=== PATIENT | male | born 1960 | race Caucasian/White ===

== ENCOUNTER 2017-02-13 20:22 | Emergency (ER) | payer OTHER ==
[~2017-02-13] VITALS: Ht 177.8 cm; Wt 116.8 kg
[~2017-02-13 20:22] MED LIST: ACLI400A2 INH; ALBU18HF INH; ALBU8.5H5 INH; BUDE10.2 INH; CEFU500T PO; DOXY100T PO; FAMO20TA37 PO; FLUT16SP NAS; FLUT1DIS3 INH; HYDR-3138 PO; HYDR-3144 PO; HYDR-882 PO; IPRA4AER INH; LEVO750T26 PO; METH4TAB2 PO; NICO1PAT10 TD; PRED10TA PO; PRED20TA PO; PRED5TAB19 PO; SULF1TAB24 PO
[2017-02-13] MEDS: ALBUTEROL SULFATE 2.5 MG/3 ML NPPB SCH (22:39)
[2017-02-13] MEDS ORDERED: methylPREDNISolone SOD SUCC 125 MG/2 ML ONE (22:51)
[2017-02-13] MEDS ORDERED: methylPREDNISolone SOD SUCC 125 MG/2 ML IVP ONE (23:00)
[2017-02-13] MEDS ORDERED: SODIUM CHLORIDE 0.9% 1,000ML IVBOLUS ONE (23:00)
[2017-02-13 23:09] LABS: BLOOD UREA NITROGEN 10 mg/dL (7-18)
[2017-02-13 23:14] LABS: ASPARTATE AMINO TRANSFERASE 20 U/L (15-37); IS PT STATUS REG ER OR PRE ER? YES
[2017-02-14 00:30] VITALS: BP 157/72
== END 2017-02-14 00:34 | disposition home or self-care (01) ==
LOC: ED 02-14 00:30
DX: R07.89 Other chest pain (principal); J44.1 Chronic obstructive pulmonary disease with (acute) exacerbation
CPT/HCPCS: 36415; 71010; 80053; 83880; 84484; 85025; 93005; 94640; 96361; 96374; 99285; J2930; J7030; J7613

== ENCOUNTER 2017-03-18 15:17 | Emergency (ER) | payer OTHER ==
[~2017-03-18] VITALS: Ht 177.8 cm; Wt 114.7 kg
[2017-03-18 15:28] VITALS: BP 147/92
== END 2017-03-18 17:19 | disposition home or self-care (01) ==
LOC: ED 17:14
DX: S90.02XA Contusion of left ankle, initial encounter (principal); S90.32XA Contusion of left foot, initial encounter; G89.11 Acute pain due to trauma; F17.200 Nicotine dependence, unspecified, uncomplicated; J44.9 Chronic obstructive pulmonary disease, unspecified; I10 Essential (primary) hypertension; X58.XXXA Exposure to other specified factors, initial encounter; Y93.89 Activity, other specified; Y92.410 Unspecified street and highway as the place of occurrence of the external cause; Y99.9 Unspecified external cause status
CPT/HCPCS: 99284

== ENCOUNTER 2017-07-23 12:43 | Inpatient (IN) | payer OTHER ==
[~2017-07-23] VITALS: Ht 177.8 cm; Wt 125.5 kg
[~2017-07-23 12:43] MED LIST changes: -HYDR-3138 PO; -HYDR-3144 PO; +HYDR-3237 PO; +HYDR-3245 PO; +NICO-485 TD; -NICO1PAT10 TD
[2017-07-23] MEDS ORDERED: methylPREDNISolone SOD SUCC 125 MG/2 ML IVP ONE (13:30)
[2017-07-23] MEDS ORDERED: SODIUM CHLORIDE FLUSH 10ML SYR IVF ONE (13:30)
[2017-07-23] MEDS: ALBUTEROL/IPRATROPIUM 2.5MG/0.5MG, 3 ML NPPB SCH ×2 (13:32→14:13)
[2017-07-23] MEDS ORDERED: ALBUTEROL/IPRATROPIUM 2.5MG/0.5MG, 3 ML ONE ×2 (13:32→14:14)
[2017-07-23] MEDS ORDERED: methylPREDNISolone SOD SUCC 125 MG/2 ML ONE (13:55)
[2017-07-23] MEDS ORDERED: FLUT1AER INH (14:07)
[2017-07-23] MEDS ORDERED: LISI5TAB7 PO (14:07)
[2017-07-23] MEDS ORDERED: ALBU6.7H INH (14:07)
[2017-07-23 14:14] LABS: HEMATOCRIT 46.6 % (39.2-51.8); HEMOGLOBIN 15.9 g/dL (13.7-18.0); WHITE BLOOD COUNT 19.1 x10^3/uL (3.4-10)
[2017-07-23] MEDS ORDERED: MORPHINE SULFATE 4 MG/ML, 1ML ONE ×2 (14:21→15:16)
[2017-07-23] MEDS ORDERED: ONDANSETRON 2MG/ML, 2ML ONE (14:22)
[2017-07-23] MEDS: MORPHINE SULFATE 4 MG/ML, 1ML IVPush PRN ×2 (14:24→15:24)
[2017-07-23 14:28] LABS: BLOOD UREA NITROGEN 7 mg/dL (7-18)
[2017-07-23] MEDS ORDERED: ONDANSETRON 2MG/ML, 2ML IVPush ONE (14:30)
[2017-07-23 14:34] LABS: ASPARTATE AMINO TRANSFERASE 15 U/L (15-37)
[2017-07-23 14:35] LABS: IS PT STATUS REG ER OR PRE ER? YES
[2017-07-23] MEDS ORDERED: CEFTRIAXONE PMX 1GM/50ML 50 ML IVPB ONE (15:00)
[2017-07-23] MEDS ORDERED: AZITHROMYCIN 500 MG in SODIUM CHLORIDE 0.9% 250 ML IVPB ONE (15:00)
[2017-07-23] MEDS ORDERED: CEFTRIAXONE PMX 1GM/50ML 50 ML ONE (15:15)
[2017-07-23] MEDS ORDERED: OMNIPAQUE 350 MG/ML, 100ML BOTTLE ONE (15:58)
[2017-07-23] MEDS ORDERED: SODIUM CHLORIDE FLUSH 10ML SYR IVF PRN (17:00)
[2017-07-23] MEDS ORDERED: HYDROcodone/APAP 5/325 TABLET PO ONE (17:00)
[2017-07-23] MEDS ORDERED: HYDROcodone/APAP 5/325 TABLET ONE (17:05)
[2017-07-23] MEDS ORDERED: ALBUTEROL SULFATE 2.5 MG/3 ML NPPB SCH (18:00)
[2017-07-23] MEDS ORDERED: hydrALAzine 20 MG/ML, 1ML IVPush PRN (18:00)
[2017-07-23] MEDS ORDERED: ONDANSETRON ODT 4 MG PO PRN (18:00)
[2017-07-23] MEDS ORDERED: HYDROcodone/APAP 5/325 TABLET PO PRN (18:00)
[2017-07-23] MEDS ORDERED: DOCUSATE 100 MG CAPSULE PO PRN (18:00)
[2017-07-23] MEDS ORDERED: ONDANSETRON 2MG/ML, 2ML IVPush PRN (18:00)
[2017-07-23] MEDS ORDERED: POLYETHYLENE GLYCOL 17 GM PACKET PO PRN (18:00)
[2017-07-23] MEDS ORDERED: GUAIFENESIN/DM 200-20MG, 10ML UDC PO PRN (18:00)
[2017-07-23] MEDS: SODIUM CHLORIDE 0.9% 1,000 ML IV SCH (18:43)
[2017-07-23] MEDS: morphine SULFATE 10 MG/ML, 1ML IVPush PRN (19:15)
[2017-07-23 19:22] VITALS: BP 137/83
[2017-07-23] MEDS: ALBUTEROL SULFATE 2.5 MG/3 ML NPPB SCH (19:46)
[2017-07-23] MEDS: HYDROcodone/APAP 10/325 MG TABLET PO SCH (21:06)
[2017-07-23] MEDS: NICOTINE 7 MG/24 HR PATCH.TD24 TD SCH (21:06)
[2017-07-23 22:00] VITALS: BP 136/83
[2017-07-24] MEDS: morphine SULFATE 10 MG/ML, 1ML IVPush PRN ×2 (00:16→08:07)
[2017-07-24 01:16] VITALS: BP 148/81
[2017-07-24 05:37] LABS: HEMATOCRIT 44.1 % (39.2-51.8); HEMOGLOBIN 15.3 g/dL (13.7-18.0); WHITE BLOOD COUNT 20.8 x10^3/uL (3.4-10)
[2017-07-24 05:50] LABS: BLOOD UREA NITROGEN 12 mg/dL (7-18)
[2017-07-24] MEDS ORDERED: AZITHROMYCIN 500 MG TABLET PO ONE (06:00)
[2017-07-24] MEDS: HYDROcodone/APAP 10/325 MG TABLET PO SCH ×4 (06:01→21:00)
[2017-07-24] MEDS: ALBUTEROL SULFATE 2.5 MG/3 ML NPPB SCH ×4 (07:32→20:00)
[2017-07-24] MEDS: SODIUM CHLORIDE 0.9% 1,000 ML IV SCH ×2 (07:50→21:00)
[2017-07-24] MEDS: CEFDINIR 300 MG CAPSULE PO SCH ×2 (07:50→15:53)
[2017-07-24] MEDS: LISINOPRIL 5 MG TABLET PO SCH (07:50)
[2017-07-24 07:52] VITALS: BP 150/90
[2017-07-24] MEDS: FLUTICASONE/VILANTEROL 200-25MCG/INH INH SCH (08:07)
[2017-07-24] MEDS ORDERED: FLUTICASONE/VILANTEROL 100-25MCG/INH INH SCH (09:00)
[2017-07-24 13:13] VITALS: BP 158/81
[2017-07-24 19:02] VITALS: BP 128/73
[2017-07-24] MEDS: NICOTINE 7 MG/24 HR PATCH.TD24 TD SCH (20:59)
[2017-07-25 01:04] VITALS: BP 130/80
[2017-07-25 05:41] LABS: HEMATOCRIT 41.2 % (39.2-51.8); HEMOGLOBIN 14.6 g/dL (13.7-18.0); WHITE BLOOD COUNT 17.9 x10^3/uL (3.4-10)
[2017-07-25] MEDS: HYDROcodone/APAP 10/325 MG TABLET PO SCH ×4 (05:59→21:01)
[2017-07-25] MEDS: ALBUTEROL SULFATE 2.5 MG/3 ML NPPB SCH ×4 (06:54→20:38)
[2017-07-25 06:57] VITALS: BP 125/80
[2017-07-25] MEDS: CEFDINIR 300 MG CAPSULE PO SCH (10:01)
[2017-07-25] MEDS: FLUTICASONE/VILANTEROL 200-25MCG/INH INH SCH (10:01)
[2017-07-25] MEDS: LISINOPRIL 5 MG TABLET PO SCH (10:02)
[2017-07-25] MEDS: AZITHROMYCIN 250 MG TABLET PO SCH (10:02)
[2017-07-25] MEDS: SODIUM CHLORIDE 0.9% 1,000 ML IV SCH (10:03)
[2017-07-25] MEDS ORDERED: VANCOMYCIN PER PHARMACY MC PRN (10:30)
[2017-07-25] MEDS ORDERED: PHARMACOKINETIC CONSULTATION MC ONE (10:30)
[2017-07-25] MEDS ORDERED: PHARMACOKINETIC MONITORING MC PRN (10:30)
[2017-07-25 10:52] LABS: ASPARTATE AMINO TRANSFERASE 13 U/L (15-37); BLOOD UREA NITROGEN 12 mg/dL (7-18)
[2017-07-25] MEDS: CEFTRIAXONE PMX 2GM/50ML 50 ML IV SCH (10:55)
[2017-07-25] MEDS: methylPREDNISolone SOD SUCC 125 MG/2 ML IVPush SCH ×3 (10:55→22:09)
[2017-07-25 10:57] LABS: IS PT STATUS REG ER OR PRE ER? NO
[2017-07-25] MEDS ORDERED: VANCOMYCIN 2,000 MG in SODIUM CHLORIDE 0.9% 500 ML IV SCH (12:00)
[2017-07-25] MEDS: VANCOMYCIN 2,000 MG in SODIUM CHLORIDE 0.9% 500 ML IV SCH (13:47)
[2017-07-25] MEDS: DIPHENHYDRAMINE 50 MG/ML, 1ML IVPush SCH (15:20)
[2017-07-25 16:07] LABS: IS PT STATUS REG ER OR PRE ER? NO
[2017-07-25 19:08] VITALS: BP 138/78
[2017-07-25] MEDS: NICOTINE 7 MG/24 HR PATCH.TD24 TD SCH (21:01)
[2017-07-25 22:39] LABS: IS PT STATUS REG ER OR PRE ER? NO
[2017-07-26 00:53] VITALS: BP 143/81
[2017-07-26] MEDS: DIPHENHYDRAMINE 50 MG/ML, 1ML IVPush SCH ×2 (01:07→13:18)
[2017-07-26] MEDS: VANCOMYCIN 2,000 MG in SODIUM CHLORIDE 0.9% 500 ML IV SCH ×2 (01:07→13:18)
[2017-07-26] MEDS: SODIUM CHLORIDE 0.9% 1,000 ML IV SCH ×2 (01:07→21:00)
[2017-07-26] MEDS: morphine SULFATE 10 MG/ML, 1ML IVPush PRN ×3 (04:23→23:08)
[2017-07-26] MEDS: methylPREDNISolone SOD SUCC 125 MG/2 ML IVPush SCH ×3 (04:23→18:00)
[2017-07-26 05:33] LABS: HEMATOCRIT 44.8 % (39.2-51.8); HEMOGLOBIN 14.9 g/dL (13.7-18.0); WHITE BLOOD COUNT 19.1 x10^3/uL (3.4-10)
[2017-07-26 06:08] LABS: BLOOD UREA NITROGEN 13 mg/dL (7-18)
[2017-07-26] MEDS: HYDROcodone/APAP 10/325 MG TABLET PO SCH ×4 (06:11→21:41)
[2017-07-26 06:49] VITALS: BP 151/78
[2017-07-26] MEDS: ALBUTEROL SULFATE 2.5 MG/3 ML NPPB SCH ×4 (06:55→20:30)
[2017-07-26] MEDS: FLUTICASONE/VILANTEROL 200-25MCG/INH INH SCH (08:53)
[2017-07-26] MEDS: AZITHROMYCIN 250 MG TABLET PO SCH (08:54)
[2017-07-26] MEDS: LISINOPRIL 5 MG TABLET PO SCH (08:54)
[2017-07-26] MEDS: CEFTRIAXONE PMX 2GM/50ML 50 ML IV SCH (11:49)
[2017-07-26 12:37] VITALS: BP 169/81
[2017-07-26 20:26] VITALS: BP 156/93
[2017-07-26] MEDS: NICOTINE 7 MG/24 HR PATCH.TD24 TD SCH (23:08)
[2017-07-27 00:36] VITALS: BP 135/79
[2017-07-27] MEDS: DIPHENHYDRAMINE 50 MG/ML, 1ML IVPush SCH ×3 (01:25→19:49)
[2017-07-27] MEDS: methylPREDNISolone SOD SUCC 125 MG/2 ML IVPush SCH ×3 (01:25→19:50)
[2017-07-27] MEDS: VANCOMYCIN 2,000 MG in SODIUM CHLORIDE 0.9% 500 ML IV SCH ×2 (01:25→19:49)
[2017-07-27] MEDS: morphine SULFATE 10 MG/ML, 1ML IVPush PRN ×2 (02:01→05:34)
[2017-07-27 05:30] LABS: HEMATOCRIT 42.7 % (39.2-51.8); HEMOGLOBIN 14.5 g/dL (13.7-18.0); WHITE BLOOD COUNT 16.2 x10^3/uL (3.4-10)
[2017-07-27] MEDS: HYDROcodone/APAP 10/325 MG TABLET PO SCH ×4 (05:34→20:50)
[2017-07-27 05:40] LABS: BLOOD UREA NITROGEN 17 mg/dL (7-18)
[2017-07-27 07:06] VITALS: BP 155/92
[2017-07-27] MEDS: ALBUTEROL SULFATE 2.5 MG/3 ML NPPB SCH ×5 (07:24→22:30)
[2017-07-27] MEDS: SODIUM CHLORIDE 0.9% 1,000 ML IV SCH ×2 (10:02→22:51)
[2017-07-27] MEDS: AZITHROMYCIN 250 MG TABLET PO SCH (10:03)
[2017-07-27] MEDS: LISINOPRIL 5 MG TABLET PO SCH (10:03)
[2017-07-27] MEDS: FLUTICASONE/VILANTEROL 200-25MCG/INH INH SCH (10:03)
[2017-07-27 13:13] VITALS: BP 148/81
[2017-07-27] MEDS: CEFTRIAXONE PMX 2GM/50ML 50 ML IV SCH (13:54)
[2017-07-27 19:24] VITALS: BP 157/80
[2017-07-27] MEDS: NICOTINE 7 MG/24 HR PATCH.TD24 TD SCH (20:50)
[2017-07-28 00:32] VITALS: BP 150/94
[2017-07-28] MEDS: methylPREDNISolone SOD SUCC 125 MG/2 ML IVPush SCH (03:58)
[2017-07-28] MEDS: HYDROcodone/APAP 10/325 MG TABLET PO SCH ×4 (05:04→21:16)
[2017-07-28] MEDS: ALBUTEROL SULFATE 2.5 MG/3 ML NPPB SCH ×5 (06:50→23:30)
[2017-07-28 07:10] VITALS: BP_SYST 173; BP_SYST 192; BP_DIAS 103; BP_DIAS 84
[2017-07-28] MEDS: FLUTICASONE/VILANTEROL 200-25MCG/INH INH SCH (09:22)
[2017-07-28] MEDS: LISINOPRIL 5 MG TABLET PO SCH (09:23)
[2017-07-28 13:03] VITALS: BP 168/90
[2017-07-28] MEDS: VANCOMYCIN 2,000 MG in SODIUM CHLORIDE 0.9% 500 ML IV SCH (13:34)
[2017-07-28] MEDS: DIPHENHYDRAMINE 50 MG/ML, 1ML IVPush SCH ×2 (16:12→19:32)
[2017-07-28] MEDS: CEFTRIAXONE PMX 2GM/50ML 50 ML IV SCH (16:36)
[2017-07-28 18:51] VITALS: BP 199/103
[2017-07-28] MEDS: NICOTINE 7 MG/24 HR PATCH.TD24 TD SCH (21:16)
[2017-07-28 21:17] VITALS: BP 164/82
[2017-07-29 01:02] VITALS: BP 157/90
[2017-07-29] MEDS: ALBUTEROL SULFATE 2.5 MG/3 ML NPPB SCH ×5 (06:00→22:00)
[2017-07-29] MEDS: HYDROcodone/APAP 10/325 MG TABLET PO SCH ×4 (06:18→21:53)
[2017-07-29 07:07] VITALS: BP 158/86
[2017-07-29] MEDS: VANCOMYCIN 2,000 MG in SODIUM CHLORIDE 0.9% 500 ML IV SCH (07:42)
[2017-07-29] MEDS: DIPHENHYDRAMINE 50 MG/ML, 1ML IVPush SCH ×2 (07:42→21:00)
[2017-07-29] MEDS: FLUTICASONE/VILANTEROL 200-25MCG/INH INH SCH (07:49)
[2017-07-29] MEDS: LISINOPRIL 5 MG TABLET PO SCH (07:49)
[2017-07-29 12:14] VITALS: BP 156/91
[2017-07-29] MEDS: CEFTRIAXONE PMX 2GM/50ML 50 ML IV SCH (15:58)
[2017-07-29 19:42] VITALS: BP 162/84
[2017-07-29] MEDS: NICOTINE 7 MG/24 HR PATCH.TD24 TD SCH (21:52)
[2017-07-30] MEDS: DIPHENHYDRAMINE 50 MG/ML, 1ML IVPush SCH (02:01)
[2017-07-30] MEDS: VANCOMYCIN 2,000 MG in SODIUM CHLORIDE 0.9% 500 ML IV SCH (02:02)
[2017-07-30 02:55] VITALS: BP 161/89
[2017-07-30] MEDS: ALBUTEROL SULFATE 2.5 MG/3 ML NPPB SCH ×3 (06:00→15:45)
[2017-07-30] MEDS: HYDROcodone/APAP 10/325 MG TABLET PO SCH ×3 (06:27→16:00)
[2017-07-30 07:15] VITALS: BP 156/92
[2017-07-30] MEDS: FLUTICASONE/VILANTEROL 200-25MCG/INH INH SCH (08:51)
[2017-07-30] MEDS ORDERED: LISINOPRIL 10 MG TABLET PO SCH (09:00)
[2017-07-30 12:31] VITALS: BP 154/80
[2017-07-30] MEDS ORDERED: LISI-167 PO (15:38)
[2017-07-30] MEDS ORDERED: LINE600T7 PO (15:38)
[2017-07-30] MEDS: CEFTRIAXONE PMX 2GM/50ML 50 ML IV SCH (16:00)
== END 2017-07-30 16:55 | disposition home or self-care (01) | DRG 871 ==
LOC: ED 13:34 → EDIP 16:59 → 3NE 18:30
PROVIDERS: ADMIT Family Medicine; ATTEND Family Medicine
DX: A41.02 Sepsis due to Methicillin resistant Staphylococcus aureus (principal); J15.212 Pneumonia due to Methicillin resistant Staphylococcus aureus; J96.91 Respiratory failure, unspecified with hypoxia; I11.0 Hypertensive heart disease with heart failure; I50.9 Heart failure, unspecified; Z99.81 Dependence on supplemental oxygen; J44.0 Chronic obstructive pulmonary disease with (acute) lower respiratory infection; J44.1 Chronic obstructive pulmonary disease with (acute) exacerbation; E10.9 Type 1 diabetes mellitus without complications; F17.210 Nicotine dependence, cigarettes, uncomplicated; G89.29 Other chronic pain; M54.2 Cervicalgia; M54.5 Low back pain; I25.10 Atherosclerotic heart disease of native coronary artery without angina pectoris; Z79.4 Long term (current) use of insulin; Z79.899 Other long term (current) drug therapy; Z86.14 Personal history of Methicillin resistant Staphylococcus aureus infection; Z87.01 Personal history of pneumonia (recurrent); Z91.018 Allergy to other foods; Z72.89 Other problems related to lifestyle
CPT/HCPCS: 36415; 71010; 71020; 71275; 80048; 80053; 80202; 83605; 83880; 84484; 85025; 85379; 85610; 85730; 87040; 87070; 87077; 87186; 87205; 93005; 94640; 96365; 96367; 96375; 96376; J0456; J0696; J2405; J3370; J7613; J7620; Q9967; J1200; J2270; J2930; J7030; J7040; J7050; J7512

== ENCOUNTER 2018-01-02 10:51 | Inpatient (IN) | payer OTHER ==
[~2018-01-02] VITALS: Ht 177.8 cm; Wt 122.0 kg
[~2018-01-02 10:51] MED LIST changes: +ALBU6.7H INH; +FLUT1AER INH; +LINE600T7 PO; +LISI-167 PO; +LISI5TAB7 PO
[2018-01-02] MEDS ORDERED: NITROGLYCERIN SINGLE TAB 0.4 MG SL ONE (11:29)
[2018-01-02] MEDS ORDERED: ASPIRIN 81 MG TABLET CHEW ONE (11:30)
[2018-01-02] MEDS ORDERED: ASPIRIN 81 MG TABLET CHEW PO ONE (11:30)
[2018-01-02] MEDS ORDERED: SODIUM CHLORIDE FLUSH 10ML SYR IVF ONE (11:30)
[2018-01-02] MEDS: NITROGLYCERIN SINGLE TAB 0.4 MG SL PRN ×2 (11:31→11:42)
[2018-01-02 11:43] LABS: BASOPHILS # (AUTO) 0.04 x10^3/uL (0-0.1); BASOPHILS % (AUTO) 0 % (0-1); EOSINOPHILS # (AUTO) 0.19 x10^3/uL (0-0.4); EOSINOPHILS % (AUTO) 2 % (1-7); LYMPHOCYTES # (AUTO) 1.66 x10^3/uL (1-3.4); LYMPHOCYTES % (AUTO) 16 % (22-44); MD NO; MEAN CORPUSCULAR HEMOGLOBIN 31.9 pg (27.5-34.5); MEAN CORPUSCULAR HGB CONC 34.1 g/dL (33.2-36.2); MEAN CORPUSCULAR VOLUME 93.7 fL (81-97); MEAN PLATELET VOLUME 7.6 fL (7.4-10.4); MICROSCOPIC NOT IND; MONOCYTES # (AUTO) 0.84 x10^3/uL (0.2-0.8); MONOCYTES % (AUTO) 8 % (2-9); NEUTROPHILS # (AUTO) 7.48 x10^3/uL (1.8-6.8); NEUTROPHILS % (AUTO) 73 % (42-75); PLATELET COUNT 177 x10^3/uL (130-400); RED BLOOD COUNT 5.19 x10^6/uL (4.38-5.82)
[2018-01-02] MEDS ORDERED: APIX5TAB PO (11:46)
[2018-01-02] MEDS ORDERED: METO200T47 PO (11:46)
[2018-01-02 11:47] LABS: CULTURE INDICATED? NO; INTERNATIONAL NORMALIZED RATIO 1.02 (0.93-1.1); PROTHROMBIN TIME 10.6 Seconds (9.6-11.5)
[2018-01-02 11:51] LABS: ALBUMIN 3.7 g/dL (3.4-5.0); ANION GAP 4 mmol/L (5-15); CALCIUM 8.5 mg/dL (8.5-10.1); CHLORIDE 103 mmol/L (98-107)
[2018-01-02 11:56] LABS: TROPONIN I < 0.015 ng/mL (0.000-0.045)
[2018-01-02] MEDS ORDERED: ONDANSETRON ODT 4 MG ONE (11:58)
[2018-01-02] MEDS ORDERED: ONDANSETRON ODT 4 MG PO ONE (12:00)
[2018-01-02] MEDS ORDERED: MORPHINE SULFATE 4 MG/ML, 1ML ONE (12:00)
[2018-01-02] MEDS ORDERED: MORPHINE SULFATE 4 MG/ML, 1ML IVPush PRN ×2 (12:00→16:00)
[2018-01-02] MEDS ORDERED: SODIUM CHLORIDE FLUSH 10ML SYR IVF PRN (13:00)
[2018-01-02 15:18] VITALS: BP 125/79
[2018-01-02] MEDS ORDERED: GUAIFENESIN/DM 200-20MG, 10ML UDC PO PRN (16:00)
[2018-01-02] MEDS ORDERED: hydrALAzine 20 MG/ML, 1ML IVPush PRN (16:00)
[2018-01-02] MEDS ORDERED: ALBUTEROL SULFATE 2.5 MG/3 ML NPPB PRN (16:00)
[2018-01-02] MEDS ORDERED: NITROGLYCERIN 0.4 MG BOTTLE (25 TABS) SL PRN (16:00)
[2018-01-02] MEDS ORDERED: ONDANSETRON 2MG/ML, 2ML IVPush PRN (16:00)
[2018-01-02] MEDS ORDERED: ACETAMINOPHEN 325 MG TABLET PO PRN (16:00)
[2018-01-02] MEDS ORDERED: BISACODYL 10 MG SUPP PR PRN (16:00)
[2018-01-02] MEDS ORDERED: NITROGLYCERIN 0.4 MG/SPRAY SL PRN (16:00)
[2018-01-02] MEDS ORDERED: POLYETHYLENE GLYCOL 17 GM PACKET PO PRN (16:00)
[2018-01-02] MEDS ORDERED: ENALAPRILAT 1.25 MG/ML, 2ML IVPush PRN (16:00)
[2018-01-02] MEDS ORDERED: ONDANSETRON ODT 4 MG PO PRN (16:00)
[2018-01-02] MEDS: LACTATED RINGERS 1,000 ML IV SCH (16:10)
[2018-01-02] MEDS: HYDROcodone/APAP 10/325 MG TABLET PO SCH ×2 (16:10→21:34)
[2018-01-02] MEDS ORDERED: FLUT1BLS3 INH (16:17)
[2018-01-02] MEDS ORDERED: METO25TA35 PO (17:25)
[2018-01-02 17:48] LABS: TROPONIN I < 0.015 ng/mL (0.000-0.045)
[2018-01-02 19:52] VITALS: BP 126/78
[2018-01-02] MEDS ORDERED: METOPROLOL SUCCINATE 100 MG TAB.ER.24H PO SCH (21:00)
[2018-01-02] MEDS: APIXABAN 5 MG TABLET PO SCH (21:34)
[2018-01-02 22:26] LABS: TROPONIN I < 0.015 ng/mL (0.000-0.045)
[2018-01-03] MEDS: LACTATED RINGERS 1,000 ML IV SCH ×2 (00:32→13:07)
[2018-01-03 00:33] VITALS: BP 133/81
[2018-01-03 05:25] LABS: BASOPHILS # (AUTO) 0.04 x10^3/uL (0-0.1); BASOPHILS % (AUTO) 0 % (0-1); EOSINOPHILS # (AUTO) 0.22 x10^3/uL (0-0.4); EOSINOPHILS % (AUTO) 3 % (1-7); LYMPHOCYTES # (AUTO) 1.72 x10^3/uL (1-3.4); LYMPHOCYTES % (AUTO) 20 % (22-44); MD NO; MEAN CORPUSCULAR HEMOGLOBIN 31.7 pg (27.5-34.5); MEAN CORPUSCULAR VOLUME 93.3 fL (81-97); MEAN PLATELET VOLUME 7.6 fL (7.4-10.4); MONOCYTES # (AUTO) 0.78 x10^3/uL (0.2-0.8); MONOCYTES % (AUTO) 9 % (2-9); NEUTROPHILS # (AUTO) 5.83 x10^3/uL (1.8-6.8); NEUTROPHILS % (AUTO) 68 % (42-75); PLATELET COUNT 154 x10^3/uL (130-400); RED BLOOD COUNT 4.74 x10^6/uL (4.38-5.82); RED CELL DISTRIBUTION WIDTH 12.9 % (9.4-14.8)
[2018-01-03 05:33] LABS: CHLORIDE 104 mmol/L (98-107)
[2018-01-03 05:43] LABS: ALANINE AMINOTRANSFERASE 21 U/L (12-78); ALBUMIN 3.2 g/dL (3.4-5.0); ALKALINE PHOSPHATASE 67 U/L (45-117); ANION GAP 5 mmol/L (5-15); BILIRUBIN,TOTAL 0.5 mg/dL (0.2-1.0); CALCIUM 8.5 mg/dL (8.5-10.1); CHOL/HDL RATIO 3.3; CHOLESTEROL, TOTAL 153 mg/dL (140-239); CREATININE 0.68 mg/dL (0.7-1.3); HDL CHOL % 31 % (26-37); HDL CHOLESTEROL (DIRECT) 47 mg/dL (40-60); LDL CHOLESTEROL,CALCULATED 80 mg/dL (54-169); LDL/HDL RATIO 1.7 (0.5-3.0); TRIGLYCERIDES 132 mg/dL (50-200); VLDL CHOLESTEROL 26 mg/dL (0-25)
[2018-01-03] MEDS: HYDROcodone/APAP 10/325 MG TABLET PO SCH ×3 (06:22→16:29)
[2018-01-03 08:20] VITALS: BP 115/77
[2018-01-03] MEDS: APIXABAN 5 MG TABLET PO SCH (08:23)
[2018-01-03] MEDS ORDERED: FLUTICASONE/VILANTEROL 100-25MCG/INH INH SCH (09:00)
[2018-01-03] MEDS ORDERED: SENNA/DOCUSATE TABLET PO SCH (09:00)
[2018-01-03] MEDS ORDERED: LISINOPRIL 10 MG TABLET PO SCH (09:00)
[2018-01-03] MEDS ORDERED: METOPROLOL TARTRATE 25 MG TABLET PO SCH (09:00)
[2018-01-03] MEDS ORDERED: REGADENOSON 0.4 MG/5 ML SYRINGE ONE (11:25)
[2018-01-03 13:09] VITALS: BP 121/75
[2018-01-03] MEDS ORDERED: PRED20TA PO (14:52)
== END 2018-01-03 16:39 | disposition home or self-care (01) | DRG 311 ==
LOC: ED 12:40 → EDIP 12:41 → ED 13:02 → 5SO 15:40
PROVIDERS: ADMIT Family Medicine; ATTEND Family Medicine
DX: I24.9 Acute ischemic heart disease, unspecified (principal); I11.0 Hypertensive heart disease with heart failure; I50.9 Heart failure, unspecified; J44.1 Chronic obstructive pulmonary disease with (acute) exacerbation; I25.110 Atherosclerotic heart disease of native coronary artery with unstable angina pectoris; I48.91 Unspecified atrial fibrillation; F17.210 Nicotine dependence, cigarettes, uncomplicated; G89.29 Other chronic pain; M54.2 Cervicalgia; E10.9 Type 1 diabetes mellitus without complications; Z79.4 Long term (current) use of insulin; Z86.14 Personal history of Methicillin resistant Staphylococcus aureus infection; Z90.89 Acquired absence of other organs; Z82.49 Family history of ischemic heart disease and other diseases of the circulatory system; Z91.018 Allergy to other foods
CPT/HCPCS: 36415; 71045; 78452; 80048; 80053; 80061; 81003; 82040; 83880; 84484; 85025; 85610; 85730; 93005; 93017; 99285; J2785; Q0162; A9502; C9898; J7120; J7512

== ENCOUNTER 2018-07-23 07:16 | Observation (INO) | payer OTHER ==
[~2018-07-23] VITALS: Ht 177.8 cm; Wt 126.7 kg
[~2018-07-23 07:16] MED LIST changes: +APIX5TAB PO; +FLUT1BLS3 INH; +HYDR-3653 PO; -HYDR-882 PO; +LINE600T33 PO; -LINE600T7 PO; +METO200T47 PO; +METO25TA35 PO
[2018-07-23] MEDS ORDERED: LOSA1TAB19 PO (07:45)
[2018-07-23] MEDS ORDERED: ALBUTEROL/IPRATROPIUM 2.5MG/0.5MG, 3 ML ONE ×2 (07:48→08:54)
[2018-07-23] MEDS: ALBUTEROL/IPRATROPIUM 2.5MG/0.5MG, 3 ML NPPB SCH ×5 (07:52→22:20)
[2018-07-23 07:53] LABS: BASOPHILS # (AUTO) 0.03 x10^3/uL (0-0.1); BASOPHILS % (AUTO) 0 % (0-1); EOSINOPHILS # (AUTO) 0.19 x10^3/uL (0-0.4); EOSINOPHILS % (AUTO) 2 % (1-7); LYMPHOCYTES # (AUTO) 1.35 x10^3/uL (1-3.4); LYMPHOCYTES % (AUTO) 14 % (22-44); MD NO; MEAN CORPUSCULAR HEMOGLOBIN 31.7 pg (27.5-34.5); MEAN CORPUSCULAR HGB CONC 33.9 g/dL (33.2-36.2); MEAN CORPUSCULAR VOLUME 93.5 fL (81-97); MEAN PLATELET VOLUME 7.9 fL (7.4-10.4); MONOCYTES # (AUTO) 1.11 x10^3/uL (0.2-0.8); MONOCYTES % (AUTO) 11 % (2-9); NEUTROPHILS # (AUTO) 7.23 x10^3/uL (1.8-6.8); NEUTROPHILS % (AUTO) 73 % (42-75); PLATELET COUNT 131 x10^3/uL (130-400); RED BLOOD COUNT 4.97 x10^6/uL (4.38-5.82); RED CELL DISTRIBUTION WIDTH 13.8 % (9.4-14.8)
[2018-07-23 08:04] LABS: ALBUMIN 3.7 g/dL (3.4-5.0); ANION GAP 6 mmol/L (5-15); CALCIUM 8.6 mg/dL (8.5-10.1); CHLORIDE 103 mmol/L (98-107); CREATININE 0.88 mg/dL (0.7-1.3)
[2018-07-23] MEDS ORDERED: KETOROLAC 30 MG/1 ML ONE (08:24)
[2018-07-23] MEDS ORDERED: methylPREDNISolone SOD SUCC 125 MG/2 ML ONE (08:24)
[2018-07-23] MEDS ORDERED: methylPREDNISolone SOD SUCC 125 MG/2 ML IVP ONE (08:30)
[2018-07-23] MEDS ORDERED: SODIUM CHLORIDE FLUSH 10ML SYR IVF ONE (08:30)
[2018-07-23] MEDS ORDERED: KETOROLAC 30 MG/1 ML IVPush ONE (08:30)
[2018-07-23] MEDS ORDERED: KETOROLAC 30 MG/1 ML IM ONE (08:30)
[2018-07-23] MEDS ORDERED: HYDROcodone/APAP 5/325 TABLET PO ONE (08:30)
[2018-07-23] MEDS ORDERED: HYDROcodone/APAP 5/325 TABLET ONE (08:47)
[2018-07-23] MEDS ORDERED: ALBUTEROL 0.5%, 20ML NPPB SCH (09:00)
[2018-07-23 09:05] LABS: RAPID INFLUENZA A Negative (Negative); RAPID INFLUENZA B Negative (Negative)
[2018-07-23] MEDS ORDERED: SODIUM CHLORIDE FLUSH 10ML SYR IVF PRN (10:00)
[2018-07-23] MEDS ORDERED: ALBUTEROL/IPRATROPIUM 2.5MG/0.5MG, 3 ML NPPB PRN (10:00)
[2018-07-23 11:07] VITALS: BP 109/72
[2018-07-23] MEDS ORDERED: AZITHROMYCIN 500 MG TABLET PO ONE (12:30)
[2018-07-23] MEDS ORDERED: ALBUTEROL SULFATE INH SCH (12:30)
[2018-07-23] MEDS ORDERED: LABETALOL 5MG/ML, 20ML IVPush PRN (12:30)
[2018-07-23] MEDS ORDERED: hydrALAzine 20 MG/ML, 1ML IVPush PRN (12:30)
[2018-07-23] MEDS ORDERED: GUAIFENESIN/DM 200-20MG, 10ML UDC PO PRN (12:30)
[2018-07-23 13:07] VITALS: BP 117/65
[2018-07-23] MEDS: HYDROcodone/APAP 10/325 MG TABLET PO SCH ×2 (17:10→21:48)
[2018-07-23] MEDS: BUDESONIDE 0.5 MG/2 ML INHA NPPB SCH (19:01)
[2018-07-23 20:22] VITALS: BP 130/63
[2018-07-23] MEDS: APIXABAN 5 MG TABLET PO SCH (21:48)
[2018-07-23] MEDS: METOPROLOL TARTRATE 25 MG TABLET PO SCH (21:49)
[2018-07-24 01:21] VITALS: BP 146/78
[2018-07-24 04:54] LABS: BASOPHILS # (AUTO) 0.01 x10^3/uL (0-0.1); BASOPHILS % (AUTO) 0 % (0-1); EOSINOPHILS % (AUTO) 0 % (1-7); LYMPHOCYTES # (AUTO) 0.68 x10^3/uL (1-3.4); LYMPHOCYTES % (AUTO) 5 % (22-44); MD NO; MEAN CORPUSCULAR HEMOGLOBIN 31.9 pg (27.5-34.5); MEAN CORPUSCULAR HGB CONC 33.8 g/dL (33.2-36.2); MEAN CORPUSCULAR VOLUME 94.3 fL (81-97); MEAN PLATELET VOLUME 8.4 fL (7.4-10.4); MONOCYTES # (AUTO) 1.15 x10^3/uL (0.2-0.8); MONOCYTES % (AUTO) 9 % (2-9); NEUTROPHILS # (AUTO) 10.84 x10^3/uL (1.8-6.8); NEUTROPHILS % (AUTO) 86 % (42-75); PLATELET COUNT 127 x10^3/uL (130-400); RED BLOOD COUNT 4.85 x10^6/uL (4.38-5.82); RED CELL DISTRIBUTION WIDTH 13.5 % (9.4-14.8)
[2018-07-24 05:03] LABS: ANION GAP 7 mmol/L (5-15); CALCIUM 9.1 mg/dL (8.5-10.1); CHLORIDE 101 mmol/L (98-107)
[2018-07-24 05:04] LABS: CREATININE 0.93 mg/dL (0.7-1.3)
[2018-07-24] MEDS: HYDROcodone/APAP 10/325 MG TABLET PO SCH (05:40)
[2018-07-24] MEDS: BUDESONIDE 0.5 MG/2 ML INHA NPPB SCH ×2 (06:35→18:53)
[2018-07-24] MEDS: ALBUTEROL/IPRATROPIUM 2.5MG/0.5MG, 3 ML NPPB SCH ×5 (06:35→23:02)
[2018-07-24 07:57] VITALS: BP 142/79
[2018-07-24] MEDS: APIXABAN 5 MG TABLET PO SCH ×2 (08:23→20:00)
[2018-07-24] MEDS: AZITHROMYCIN 250 MG TABLET PO SCH (08:23)
[2018-07-24] MEDS: METOPROLOL TARTRATE 25 MG TABLET PO SCH ×2 (08:23→20:00)
[2018-07-24] MEDS ORDERED: TEMPLATE NON-FORMULARY MED. (Losartan/Hydrochlorothiazide** (Losartan-Hctz 50-12.5 Mg Tab PO SCH (09:00)
[2018-07-24] MEDS: HYDROcodone/APAP 10/325 MG TABLET PO PRN ×3 (09:33→18:41)
[2018-07-24] MEDS: LOSARTAN 50MG TABLET PO SCH (11:15)
[2018-07-24] MEDS: HYDROCHLOROTHIAZIDE 12.5 MG CAPSULE PO SCH (11:16)
[2018-07-24] MEDS: NICOTINE 7 MG/24 HR PATCH.TD24 TD SCH (13:58)
[2018-07-24 13:59] VITALS: BP 154/77
[2018-07-24 19:14] VITALS: BP 127/76
[2018-07-25 02:15] VITALS: BP 131/79
[2018-07-25] MEDS: HYDROcodone/APAP 10/325 MG TABLET PO PRN ×4 (03:34→20:45)
[2018-07-25 05:25] LABS: BASOPHILS # (AUTO) 0.04 x10^3/uL (0-0.1); BASOPHILS % (AUTO) 0 % (0-1); EOSINOPHILS # (AUTO) 0.03 x10^3/uL (0-0.4); EOSINOPHILS % (AUTO) 0 % (1-7); LYMPHOCYTES % (AUTO) 12 % (22-44); MD NO; MEAN CORPUSCULAR HEMOGLOBIN 31.5 pg (27.5-34.5); MEAN CORPUSCULAR HGB CONC 33.1 g/dL (33.2-36.2); MEAN CORPUSCULAR VOLUME 95.3 fL (81-97); MEAN PLATELET VOLUME 8.4 fL (7.4-10.4); MONOCYTES % (AUTO) 8 % (2-9); NEUTROPHILS # (AUTO) 10.75 x10^3/uL (1.8-6.8); NEUTROPHILS % (AUTO) 80 % (42-75); PLATELET COUNT 112 x10^3/uL (130-400); RED BLOOD COUNT 4.77 x10^6/uL (4.38-5.82); RED CELL DISTRIBUTION WIDTH 13.8 % (9.4-14.8)
[2018-07-25 05:43] LABS: CHLORIDE 99 mmol/L (98-107)
[2018-07-25 05:48] LABS: ANION GAP 2 mmol/L (5-15); CALCIUM 8.6 mg/dL (8.5-10.1); CREATININE 0.79 mg/dL (0.7-1.3)
[2018-07-25] MEDS: ALBUTEROL/IPRATROPIUM 2.5MG/0.5MG, 3 ML NPPB SCH ×5 (07:01→23:17)
[2018-07-25 07:43] VITALS: BP 132/82
[2018-07-25] MEDS: APIXABAN 5 MG TABLET PO SCH ×2 (08:30→20:46)
[2018-07-25] MEDS: AZITHROMYCIN 250 MG TABLET PO SCH (08:31)
[2018-07-25] MEDS: LOSARTAN 50MG TABLET PO SCH (08:31)
[2018-07-25] MEDS: HYDROCHLOROTHIAZIDE 12.5 MG CAPSULE PO SCH (08:31)
[2018-07-25] MEDS: METOPROLOL TARTRATE 25 MG TABLET PO SCH ×2 (08:31→20:46)
[2018-07-25] MEDS: BUDESONIDE 0.5 MG/2 ML INHA NPPB SCH ×2 (11:18→19:04)
[2018-07-25] MEDS: NICOTINE 7 MG/24 HR PATCH.TD24 TD SCH (14:26)
[2018-07-25 14:59] VITALS: BP 132/82
[2018-07-25 19:02] VITALS: BP 140/79
[2018-07-26 00:49] VITALS: BP 136/74
[2018-07-26] MEDS: HYDROcodone/APAP 10/325 MG TABLET PO PRN ×3 (03:30→15:40)
[2018-07-26 06:25] LABS: BASOPHILS # (AUTO) 0.04 x10^3/uL (0-0.1); BASOPHILS % (AUTO) 0 % (0-1); EOSINOPHILS % (AUTO) 1 % (1-7); LYMPHOCYTES # (AUTO) 1.99 x10^3/uL (1-3.4); LYMPHOCYTES % (AUTO) 18 % (22-44); MD NO; MEAN CORPUSCULAR HEMOGLOBIN 32.1 pg (27.5-34.5); MEAN CORPUSCULAR HGB CONC 33.9 g/dL (33.2-36.2); MEAN CORPUSCULAR VOLUME 94.8 fL (81-97); MEAN PLATELET VOLUME 7.7 fL (7.4-10.4); MONOCYTES # (AUTO) 0.99 x10^3/uL (0.2-0.8); MONOCYTES % (AUTO) 9 % (2-9); NEUTROPHILS # (AUTO) 8.09 x10^3/uL (1.8-6.8); NEUTROPHILS % (AUTO) 72 % (42-75); PLATELET COUNT 122 x10^3/uL (130-400); RED BLOOD COUNT 4.65 x10^6/uL (4.38-5.82); RED CELL DISTRIBUTION WIDTH 13.9 % (9.4-14.8)
[2018-07-26 06:34] LABS: ANION GAP 4 mmol/L (5-15); CALCIUM 8.4 mg/dL (8.5-10.1); CHLORIDE 102 mmol/L (98-107); CREATININE 0.88 mg/dL (0.7-1.3)
[2018-07-26] MEDS: BUDESONIDE 0.5 MG/2 ML INHA NPPB SCH (06:47)
[2018-07-26] MEDS: ALBUTEROL/IPRATROPIUM 2.5MG/0.5MG, 3 ML NPPB SCH ×3 (06:47→14:25)
[2018-07-26 07:33] VITALS: BP 142/88
[2018-07-26] MEDS: METOPROLOL TARTRATE 25 MG TABLET PO SCH (09:26)
[2018-07-26] MEDS: APIXABAN 5 MG TABLET PO SCH (09:26)
[2018-07-26] MEDS: LOSARTAN 50MG TABLET PO SCH (09:26)
[2018-07-26] MEDS: AZITHROMYCIN 250 MG TABLET PO SCH (09:26)
[2018-07-26] MEDS: HYDROCHLOROTHIAZIDE 12.5 MG CAPSULE PO SCH (09:27)
[2018-07-26 12:32] VITALS: BP 130/81
[2018-07-26] MEDS: NICOTINE 7 MG/24 HR PATCH.TD24 TD SCH (13:00)
[2018-07-26] MEDS ORDERED: PRED20TA PO (14:00)
[2018-07-26] MEDS ORDERED: AZIT250T89 PO (14:00)
== END 2018-07-26 16:00 | disposition home or self-care (01) ==
LOC: ED 08:58 → INTOOBSV 09:32 → EDIP 09:32 → 3NW 11:03
PROVIDERS: ADMIT Internal Medicine; ATTEND Internal Medicine
DX: J44.1 Chronic obstructive pulmonary disease with (acute) exacerbation (principal); I48.91 Unspecified atrial fibrillation; I25.10 Atherosclerotic heart disease of native coronary artery without angina pectoris; I50.9 Heart failure, unspecified; I11.0 Hypertensive heart disease with heart failure; F17.210 Nicotine dependence, cigarettes, uncomplicated; G89.29 Other chronic pain; M54.5 Low back pain; M54.2 Cervicalgia; M48.061 Spinal stenosis, lumbar region without neurogenic claudication; E10.9 Type 1 diabetes mellitus without complications; Z82.49 Family history of ischemic heart disease and other diseases of the circulatory system; Z83.3 Family history of diabetes mellitus; Z86.14 Personal history of Methicillin resistant Staphylococcus aureus infection; Z87.01 Personal history of pneumonia (recurrent); Z99.81 Dependence on supplemental oxygen
CPT/HCPCS: 36415; 71045; 80048; 82040; 83605; 85025; 87400; 93005; 94640; 96374; 99284; G0378; J2930; J7512; J7620; J7626

== ENCOUNTER 2018-08-13 16:07 | Inpatient (IN) | payer MEDICAID, OTHER ==
[~2018-08-13] VITALS: Ht 177.8 cm; Wt 134.1 kg
[~2018-08-13 16:07] MED LIST changes: +AZIT250T89 PO; +LOSA1TAB19 PO
[2018-08-13] MEDS ORDERED: ALBUTEROL/IPRATROPIUM 2.5MG/0.5MG, 3 ML NPPB ONE (16:30)
[2018-08-13] MEDS ORDERED: DILTIAZEM 5 MG/ML, 5ML ONE ×2 (16:37→17:41)
[2018-08-13] MEDS ORDERED: ALBUTEROL SULFATE 2.5MG/0.5ML ONE (16:45)
[2018-08-13] MEDS ORDERED: ALBUTEROL/IPRATROPIUM 2.5MG/0.5MG, 3 ML ONE (16:45)
[2018-08-13 16:48] LABS: BASOPHILS # (AUTO) 0.07 x10^3/uL (0-0.1); BASOPHILS % (AUTO) 1 % (0-1); EOSINOPHILS # (AUTO) 0.33 x10^3/uL (0-0.4); EOSINOPHILS % (AUTO) 2 % (1-7); LYMPHOCYTES # (AUTO) 3.46 x10^3/uL (1-3.4); LYMPHOCYTES % (AUTO) 26 % (22-44); MD NO; MEAN CORPUSCULAR HEMOGLOBIN 31.6 pg (27.5-34.5); MEAN CORPUSCULAR VOLUME 92.9 fL (81-97); MEAN PLATELET VOLUME 7.4 fL (7.4-10.4); MONOCYTES # (AUTO) 1.34 x10^3/uL (0.2-0.8); MONOCYTES % (AUTO) 10 % (2-9); NEUTROPHILS # (AUTO) 8.39 x10^3/uL (1.8-6.8); NEUTROPHILS % (AUTO) 62 % (42-75); PLATELET COUNT 244 x10^3/uL (130-400); RED BLOOD COUNT 5.14 x10^6/uL (4.38-5.82); RED CELL DISTRIBUTION WIDTH 13.8 % (9.4-14.8)
[2018-08-13 16:58] LABS: ALBUMIN 3.7 g/dL (3.4-5.0); ANION GAP 6 mmol/L (5-15); CALCIUM 8.3 mg/dL (8.5-10.1); CHLORIDE 98 mmol/L (98-107)
[2018-08-13] MEDS: SODIUM CHLORIDE 0.9% 1,000 ML IV SCH ×4 (16:58→19:45)
[2018-08-13] MEDS ORDERED: DILTIAZEM 5 MG/ML, 5ML IVPush ONE ×2 (17:00→18:00)
[2018-08-13 17:03] LABS: ALANINE AMINOTRANSFERASE 34 U/L (12-78); ALKALINE PHOSPHATASE 93 U/L (45-117); BILIRUBIN,TOTAL 0.3 mg/dL (0.2-1.0); TOTAL PROTEIN 7.2 g/dL (6.4-8.2); TROPONIN I < 0.015 ng/mL (0.000-0.045)
[2018-08-13] MEDS ORDERED: OMNIPAQUE 350 MG/ML, 100ML BOTTLE ONE (17:21)
--- NOTE | 2018-08-13 17:37 | NUR ---
LATE ENTRY FOR 1628, PT TO ROOM FROM TRIAGE VIA WC. PT ANXIOUS, TACHYPNIC. TRANSFERED TO [facility] AND [facility]ACE +AFIB W/ RVR. DR DAMON AT BEDSIDE. PIV ESTABLISHED X 2, EKG COMPLETED. RT AT BEDSIDE BIPAP INITIATED, PT MED WITH DILTIZEM NOTED. BP LOW, NS IFUSING WO ON PRESSURE BAG.
--- NOTE | 2018-08-13 17:48 | NUR ---
LATE ENTRY 1640 HR IMPROVED, 2ND EKG COMPLETED.
--- NOTE | 2018-08-13 17:48 | NUR ---
LATE ENTRY 1710, PT TO CT ON 100%NRB WITH RN X [address] DAMON PT TO HAVE CONTRAST CT PRIOR TO LAB RESULTS. PT TOLLERATED CT WELL AND RTD TO ED.
[2018-08-13] MEDS ORDERED: HYDROcodone/APAP 10/325 MG TABLET ONE (17:59)
[2018-08-13] MEDS ORDERED: HYDROcodone/APAP 10/325 MG TABLET PO ONE (18:00)
[2018-08-13] MEDS ORDERED: SODIUM CHLORIDE 0.9% 1,000ML IVBOLUS ONE (18:00)
[2018-08-13] MEDS: DILTIAZEM 125 MG in DEXTROSE 5% 100 ML IV SCH ×2 (18:04→20:07)
--- NOTE | 2018-08-13 18:30 | NUR ---
PTS AT BEDSIDE, PT ASSESSMENT, POC DISCUSSED AND QUESTIONS ANSWERED.
[2018-08-13] MEDS ORDERED: ALBUTEROL/IPRATROPIUM 2.5MG/0.5MG, 3 ML NEB ONE (18:35)
--- NOTE | 2018-08-13 18:50 | NUR ---
DR GARCIA AT BEDSIDE. SBAR RPT DISCUSSED AND QUESTIONS ANSWERED.
--- NOTE | 2018-08-13 18:53 | NUR ---
DR MCADAMS AT BEDSIDE.
[2018-08-13] MEDS ORDERED: ACETAMINOPHEN 325 MG TABLET PO PRN (19:30)
[2018-08-13] MEDS ORDERED: ALBUTEROL SULFATE 2.5 MG/3 ML NPPB PRN (20:00)
[2018-08-13] MEDS ORDERED: METOPROLOL TARTRATE 25 MG TABLET PO SCH (21:00)
[2018-08-13] MEDS: BUDESONIDE 0.5 MG/2 ML INHA INH SCH (21:00)
[2018-08-13] MEDS: methylPREDNISolone SOD SUCC 125 MG/2 ML IVPush SCH (21:05)
[2018-08-13] MEDS: CEFTRIAXONE PMX 1GM/50ML 50 ML IV SCH (21:05)
[2018-08-13] MEDS: FAMOTIDINE 20 MG/2 ML IVPush SCH (21:05)
[2018-08-13] MEDS: HYDROcodone/APAP 10/325 MG TABLET PO SCH (21:06)
[2018-08-13] MEDS: APIXABAN 5 MG TABLET PO SCH (21:06)
[2018-08-13 21:23] VITALS: BP 90/61
[2018-08-13] MEDS: ALBUTEROL/IPRATROPIUM 2.5MG/0.5MG, 3 ML NPPB SCH (23:00)
[2018-08-13] MEDS: AZITHROMYCIN 500 MG in SODIUM CHLORIDE 0.9% 250 ML IV SCH (23:04)
[2018-08-13 23:40] LABS: TROPONIN I < 0.015 ng/mL (0.000-0.045)
[2018-08-14] MEDS: ALBUTEROL/IPRATROPIUM 2.5MG/0.5MG, 3 ML NPPB SCH ×6 (02:56→21:58)
[2018-08-14 04:43] LABS: BASOPHILS % (AUTO) 0 % (0-1); EOSINOPHILS # (AUTO) 0.12 x10^3/uL (0-0.4); EOSINOPHILS % (AUTO) 1 % (1-7); LYMPHOCYTES # (AUTO) 0.44 x10^3/uL (1-3.4); LYMPHOCYTES % (AUTO) 5 % (22-44); MD NO; MEAN CORPUSCULAR HEMOGLOBIN 31.9 pg (27.5-34.5); MEAN CORPUSCULAR HGB CONC 34.1 g/dL (33.2-36.2); MEAN CORPUSCULAR VOLUME 93.5 fL (81-97); MEAN PLATELET VOLUME 7.7 fL (7.4-10.4); MONOCYTES # (AUTO) 0.04 x10^3/uL (0.2-0.8); MONOCYTES % (AUTO) 0 % (2-9); NEUTROPHILS # (AUTO) 8.81 x10^3/uL (1.8-6.8); NEUTROPHILS % (AUTO) 94 % (42-75); PLATELET COUNT 152 x10^3/uL (130-400); RED BLOOD COUNT 4.76 x10^6/uL (4.38-5.82); RED CELL DISTRIBUTION WIDTH 13.8 % (9.4-14.8)
[2018-08-14 04:54] LABS: ALANINE AMINOTRANSFERASE 31 U/L (12-78); ALBUMIN 3.5 g/dL (3.4-5.0); ANION GAP 8 mmol/L (5-15); CALCIUM 7.8 mg/dL (8.5-10.1); CHLORIDE 102 mmol/L (98-107); CREATININE 1.17 mg/dL (0.7-1.3)
[2018-08-14] MEDS: HYDROcodone/APAP 10/325 MG TABLET PO SCH ×4 (04:55→21:02)
[2018-08-14] MEDS: methylPREDNISolone SOD SUCC 125 MG/2 ML IVPush SCH ×3 (04:55→17:52)
[2018-08-14 04:58] LABS: ALKALINE PHOSPHATASE 88 U/L (45-117); BILIRUBIN,TOTAL 0.3 mg/dL (0.2-1.0); TOTAL PROTEIN 6.9 g/dL (6.4-8.2); TROPONIN I < 0.015 ng/mL (0.000-0.045)
[2018-08-14] MEDS ORDERED: DILTIAZEM 125 MG in SODIUM CHLORIDE 0.9% 100 ML IV SCH (05:30)
[2018-08-14 06:53] LABS: RAPID INFLUENZA A Negative (Negative); RAPID INFLUENZA B Negative (Negative)
[2018-08-14] MEDS: APIXABAN 5 MG TABLET PO SCH ×2 (08:05→21:02)
[2018-08-14] MEDS: FAMOTIDINE 20 MG/2 ML IVPush SCH ×2 (08:05→21:02)
[2018-08-14] MEDS ORDERED: HYDROCHLOROTHIAZIDE 12.5 MG CAPSULE PO SCH (09:00)
[2018-08-14] MEDS ORDERED: MAGNESIUM SULFATE PMX 2GM/50ML 50 ML IV ONE (09:00)
[2018-08-14] MEDS ORDERED: LOSARTAN 50MG TABLET PO SCH (09:00)
[2018-08-14] MEDS: BUDESONIDE 0.5 MG/2 ML INHA INH SCH ×2 (10:30→21:00)
[2018-08-14] MEDS: DILTIAZEM 120 MG TABLET PO SCH ×3 (13:14→21:02)
[2018-08-14] MEDS: SODIUM CHLORIDE 0.9% 1,000 ML IV SCH (14:35)
[2018-08-14] MEDS: CEFTRIAXONE PMX 1GM/50ML 50 ML IV SCH (21:03)
[2018-08-14 22:37] VITALS: BP 149/78
[2018-08-14] MEDS: AZITHROMYCIN 500 MG in SODIUM CHLORIDE 0.9% 250 ML IV SCH (22:40)
[2018-08-15] MEDS: methylPREDNISolone SOD SUCC 125 MG/2 ML IVPush SCH ×3 (00:09→12:16)
[2018-08-15 01:38] VITALS: BP 136/76
[2018-08-15] MEDS: ALBUTEROL/IPRATROPIUM 2.5MG/0.5MG, 3 ML NPPB SCH ×6 (02:48→23:00)
[2018-08-15] MEDS: HYDROcodone/APAP 10/325 MG TABLET PO SCH ×4 (05:22→21:39)
[2018-08-15 06:58] VITALS: BP 155/84
[2018-08-15] MEDS ORDERED: LIDOCAINE 4% TOPICAL SOLUTION 50 ML TP PRN (07:30)
[2018-08-15] MEDS: BUDESONIDE 0.5 MG/2 ML INHA INH SCH ×2 (07:45→20:07)
[2018-08-15] MEDS: SODIUM CHLORIDE 0.9% 1,000 ML IV SCH (09:27)
[2018-08-15] MEDS: FAMOTIDINE 20 MG/2 ML IVPush SCH (09:28)
[2018-08-15] MEDS: APIXABAN 5 MG TABLET PO SCH ×2 (09:28→21:38)
[2018-08-15] MEDS: DILTIAZEM 120 MG TABLET PO SCH ×2 (09:28→16:55)
[2018-08-15 13:19] VITALS: BP 130/73
[2018-08-15] MEDS: HYDROCHLOROTHIAZIDE 12.5 MG CAPSULE PO SCH (13:57)
[2018-08-15] MEDS: LOSARTAN 50MG TABLET PO SCH (13:58)
[2018-08-15] MEDS ORDERED: methylPREDNISolone SOD SUCC 125 MG/2 ML IVPush SCH (18:00)
[2018-08-15 18:59] VITALS: BP 125/73
[2018-08-15] MEDS ORDERED: DILTIAZEM 5 MG/ML, 5ML IVPush ONE ×2 (20:00→21:30)
[2018-08-15] MEDS ORDERED: DILTIAZEM 125 MG in SODIUM CHLORIDE 0.9% 100 ML IV PRN (21:30)
[2018-08-15] MEDS: CEFTRIAXONE PMX 1GM/50ML 50 ML IV SCH (21:38)
[2018-08-15] MEDS: FAMOTIDINE 20 MG TABLET PO SCH (21:39)
[2018-08-15] MEDS ORDERED: DILTIAZEM 125 MG in SODIUM CHLORIDE 0.9% 100 ML IV SCH (22:00)
[2018-08-16 00:47] VITALS: BP 135/79
[2018-08-16] MEDS: ALBUTEROL/IPRATROPIUM 2.5MG/0.5MG, 3 ML NPPB SCH ×5 (03:00→19:27)
[2018-08-16] MEDS: HYDROcodone/APAP 10/325 MG TABLET PO SCH ×4 (05:35→20:11)
[2018-08-16 05:46] LABS: ANION GAP 6 mmol/L (5-15); CALCIUM 8.4 mg/dL (8.5-10.1); CHLORIDE 101 mmol/L (98-107)
[2018-08-16 05:47] LABS: CREATININE 1.03 mg/dL (0.7-1.3)
[2018-08-16 07:37] VITALS: BP 129/71
[2018-08-16] MEDS ORDERED: DILTIAZEM 125 MG in SODIUM CHLORIDE 0.9% 100 ML IV SCH ×2 (08:00→22:00)
[2018-08-16 08:38] VITALS: BP 113/70
[2018-08-16] MEDS: BUDESONIDE 0.5 MG/2 ML INHA INH SCH (09:00)
[2018-08-16] MEDS: morphine SULFATE 10 MG/ML, 1ML IVPush PRN ×4 (09:21→21:36)
[2018-08-16] MEDS: APIXABAN 5 MG TABLET PO SCH ×2 (09:22→20:11)
[2018-08-16] MEDS: HYDROCHLOROTHIAZIDE 12.5 MG CAPSULE PO SCH (09:22)
[2018-08-16] MEDS: LOSARTAN 50MG TABLET PO SCH (09:23)
[2018-08-16 13:31] VITALS: BP 131/72
[2018-08-16] MEDS ORDERED: DILTIAZEM 120 MG TABLET PO SCH (16:00)
[2018-08-16] MEDS: DILTIAZEM 120 MG TABLET PO SCH ×2 (16:18→20:12)
[2018-08-16] MEDS: GUAIFENESIN 200 MG TABLET PO SCH ×2 (16:18→20:12)
[2018-08-16 18:32] VITALS: BP 130/69
[2018-08-16] MEDS: FAMOTIDINE 20 MG TABLET PO SCH (20:12)
[2018-08-16] MEDS: AZITHROMYCIN 250 MG TABLET PO SCH (20:12)
[2018-08-16] MEDS: CEFTRIAXONE PMX 1GM/50ML 50 ML IV SCH (21:36)
[2018-08-17 00:46] VITALS: BP 157/91
[2018-08-17] MEDS: morphine SULFATE 10 MG/ML, 1ML IVPush PRN ×4 (00:48→23:41)
[2018-08-17] MEDS: HYDROcodone/APAP 10/325 MG TABLET PO SCH ×4 (06:06→20:01)
[2018-08-17] MEDS: DILTIAZEM 120 MG TABLET PO SCH ×4 (06:07→20:00)
[2018-08-17] MEDS: GUAIFENESIN 200 MG TABLET PO SCH ×4 (06:07→20:00)
[2018-08-17] MEDS: ALBUTEROL/IPRATROPIUM 2.5MG/0.5MG, 3 ML NPPB SCH ×4 (06:55→19:34)
[2018-08-17] MEDS: LOSARTAN 50MG TABLET PO SCH (08:39)
[2018-08-17] MEDS: APIXABAN 5 MG TABLET PO SCH ×2 (08:39→20:01)
[2018-08-17] MEDS: AZITHROMYCIN 250 MG TABLET PO SCH (08:39)
[2018-08-17] MEDS: HYDROCHLOROTHIAZIDE 12.5 MG CAPSULE PO SCH (08:39)
[2018-08-17 08:41] LABS: TROPONIN I < 0.015 ng/mL (0.000-0.045)
[2018-08-17] MEDS ORDERED: TRELEGY ELLIPTA INH SCH (09:00)
[2018-08-17 09:49] VITALS: BP 136/80
[2018-08-17 12:14] LABS: TROPONIN I < 0.015 ng/mL (0.000-0.045)
[2018-08-17 15:59] VITALS: BP 150/97
[2018-08-17 19:58] VITALS: BP 151/83
[2018-08-17] MEDS: FAMOTIDINE 20 MG TABLET PO SCH (20:00)
[2018-08-17] MEDS: CEFTRIAXONE PMX 1GM/50ML 50 ML IV SCH (21:19)
[2018-08-18 02:31] VITALS: BP 146/80
[2018-08-18 05:06] VITALS: BP 161/89
[2018-08-18] MEDS: HYDROcodone/APAP 10/325 MG TABLET PO SCH ×2 (05:08→11:11)
[2018-08-18] MEDS: DILTIAZEM 120 MG TABLET PO SCH ×2 (05:08→11:11)
[2018-08-18] MEDS: GUAIFENESIN 200 MG TABLET PO SCH ×2 (05:09→11:11)
[2018-08-18] MEDS ORDERED: DILT120C11 PO (07:01)
[2018-08-18 07:06] VITALS: BP 147/81
[2018-08-18] MEDS: ALBUTEROL/IPRATROPIUM 2.5MG/0.5MG, 3 ML NPPB SCH ×2 (07:20→10:10)
[2018-08-18] MEDS: HYDROCHLOROTHIAZIDE 12.5 MG CAPSULE PO SCH (08:05)
[2018-08-18] MEDS: APIXABAN 5 MG TABLET PO SCH (08:05)
[2018-08-18] MEDS ORDERED: LOSARTAN 50MG TABLET PO SCH (09:00)
[2018-08-18] MEDS: morphine SULFATE 10 MG/ML, 1ML IVPush PRN (09:31)
[2018-08-18] MEDS ORDERED: PRED20TA PO (11:52)
[2018-08-18] MEDS ORDERED: LOSA1TAB25 PO (11:52)
[2018-08-18 12:00] VITALS: BP 142/90
[2018-08-18] MEDS ORDERED: AZIT250T PO (12:01)
== END 2018-08-18 15:49 | disposition home or self-care (01) | DRG 682 ==
LOC: ED 17:35 → EDIP 18:41 → ICU 19:22 → 5SO 08-14 19:01
PROVIDERS: ADMIT Hospitalist; ATTEND Hospitalist
PROC: 5A09357 Assistance with Respiratory Ventilation, Less than 24 Consecutive Hours, Continuous Positive Airway Pressure (ICD-10-PCS; principal; 2018-08-13)
DX: N17.9 Acute kidney failure, unspecified (principal); I50.33 Acute on chronic diastolic (congestive) heart failure; J11.00 Influenza due to unidentified influenza virus with unspecified type of pneumonia; J96.21 Acute and chronic respiratory failure with hypoxia; D68.69 Other thrombophilia; E87.1 Hypo-osmolality and hyponatremia; I48.1 Persistent atrial fibrillation; J44.0 Chronic obstructive pulmonary disease with (acute) lower respiratory infection; J44.1 Chronic obstructive pulmonary disease with (acute) exacerbation; J98.11 Atelectasis; Z68.41 Body mass index [BMI] 40.0-44.9, adult; Z99.11 Dependence on respirator [ventilator] status; Z66 Do not resuscitate; E10.9 Type 1 diabetes mellitus without complications; E66.01 Morbid (severe) obesity due to excess calories; E83.42 Hypomagnesemia; E86.0 Dehydration; N28.1 Cyst of kidney, acquired; F17.200 Nicotine dependence, unspecified, uncomplicated; G89.29 Other chronic pain; I11.0 Hypertensive heart disease with heart failure; I25.10 Atherosclerotic heart disease of native coronary artery without angina pectoris; I48.2 Chronic atrial fibrillation; J20.9 Acute bronchitis, unspecified; K76.0 Fatty (change of) liver, not elsewhere classified; I25.2 Old myocardial infarction; Z68.39 Body mass index [BMI] 39.0-39.9, adult; Z79.01 Long term (current) use of anticoagulants; Z79.4 Long term (current) use of insulin; Z82.49 Family history of ischemic heart disease and other diseases of the circulatory system; Z82.5 Family history of asthma and other chronic lower respiratory diseases; Z83.3 Family history of diabetes mellitus; Z86.14 Personal history of Methicillin resistant Staphylococcus aureus infection; Z99.81 Dependence on supplemental oxygen
CPT/HCPCS: 36415; 36600; 87400; 99285; J3490; J7620; J7626; 71045; 74177; 80048; 80053; 82803; 83690; 83735; 83880; 84100; 84484; 85025; 87081; 93005; 93306; 94640; 94660; 94664; 96374; 96375; G0378; J0456; J0696; Q9967; J2270; J2930; J3475; J7030; J7050; J7512

== ENCOUNTER 2018-10-06 11:00 | Inpatient (IN) | payer MEDICAID ==
[~2018-10-06] VITALS: Ht 177.8 cm; Wt 128.1 kg
[~2018-10-06 11:00] MED LIST changes: +AZIT250T PO; +DILT120C11 PO; +LOSA1TAB25 PO
[2018-10-06] MEDS ORDERED: DILT300C44 PO (11:27)
[2018-10-06] MEDS ORDERED: LOSA100T14 PO (11:27)
[2018-10-06 11:34] VITALS: BP 99/63
[2018-10-06] MEDS ORDERED: ALBUTEROL/IPRATROPIUM 2.5MG/0.5MG, 3 ML ONE (11:57)
[2018-10-06] MEDS ORDERED: PLEASE ENTER HEIGHT AND WEIGHT MC SCH (12:30)
[2018-10-06 12:39] LABS: ANION GAP 3 mmol/L (5-15); CALCIUM 8.7 mg/dL (8.5-10.1); CHLORIDE 102 mmol/L (98-107); CHOLESTEROL, TOTAL 189 mg/dL (140-239); CREATININE 1.05 mg/dL (0.7-1.3); TRIGLYCERIDES 139 mg/dL (50-200); VLDL CHOLESTEROL 28 mg/dL (0-25)
[2018-10-06 12:43] LABS: CHOL/HDL RATIO 4.7; FREE T4 (FREE THYROXINE) 1.04 ng/dL (0.76-1.46); HDL CHOL % 21 % (26-37); HDL CHOLESTEROL (DIRECT) 40 mg/dL (40-60); LDL CHOLESTEROL,CALCULATED 121 mg/dL (54-169); TROPONIN I < 0.015 ng/mL (0.000-0.045)
[2018-10-06] MEDS: ALBUTEROL/IPRATROPIUM 2.5MG/0.5MG, 3 ML NPPB SCH ×2 (14:17→20:35)
[2018-10-06] MEDS ORDERED: HYDROcodone/APAP 10/325 MG TABLET ONE (15:31)
[2018-10-06] MEDS: HYDROcodone/APAP 10/325 MG TABLET PO PRN ×2 (15:33→21:26)
[2018-10-06] MEDS ORDERED: ACETAMINOPHEN 325 MG TABLET PO PRN (17:00)
[2018-10-06] MEDS ORDERED: ONDANSETRON 2MG/ML, 2ML IVPush PRN (17:00)
[2018-10-06] MEDS ORDERED: BISACODYL 5 MG EC TABLET PO PRN (17:00)
[2018-10-06] MEDS ORDERED: ZOLPIDEM 5MG TABLET PO PRN (17:00)
[2018-10-06] MEDS ORDERED: BISACODYL 10 MG SUPP PR PRN (17:00)
[2018-10-06 17:20] LABS: TROPONIN I < 0.015 ng/mL (0.000-0.045)
[2018-10-06] MEDS: AMIODARONE 200 MG TABLET PO SCH (21:00)
[2018-10-06 21:07] VITALS: BP 106/65
[2018-10-06] MEDS: SODIUM CHLORIDE FLUSH 10ML SYR IVF SCH (21:26)
[2018-10-06] MEDS: APIXABAN 5 MG TABLET PO SCH (21:26)
[2018-10-06 21:34] VITALS: BP 91/54
[2018-10-06 23:19] LABS: TROPONIN I < 0.015 ng/mL (0.000-0.045)
[2018-10-07 03:10] VITALS: BP 131/88
[2018-10-07] MEDS: HYDROcodone/APAP 10/325 MG TABLET PO PRN ×4 (05:20→22:05)
[2018-10-07 07:32] VITALS: BP 111/76
[2018-10-07] MEDS ORDERED: ALBUTEROL/IPRATROPIUM 2.5MG/0.5MG, 3 ML NPPB PRN (08:00)
[2018-10-07] MEDS: AMIODARONE 200 MG TABLET PO SCH ×2 (08:41→22:00)
[2018-10-07] MEDS: HYDROCHLOROTHIAZIDE 25 MG TABLET PO SCH (08:41)
[2018-10-07] MEDS: APIXABAN 5 MG TABLET PO SCH ×2 (08:42→22:00)
[2018-10-07] MEDS: LOSARTAN 50MG TABLET PO SCH (08:42)
[2018-10-07] MEDS: SODIUM CHLORIDE FLUSH 10ML SYR IVF SCH ×2 (08:44→22:00)
[2018-10-07 11:00] VITALS: BP 112/72
[2018-10-07 12:50] VITALS: BP 112/75
[2018-10-07 20:00] VITALS: BP 118/75
[2018-10-08 00:56] VITALS: BP 111/82
[2018-10-08] MEDS: HYDROcodone/APAP 10/325 MG TABLET PO PRN ×5 (01:45→22:06)
[2018-10-08 08:01] VITALS: BP 111/83
[2018-10-08] MEDS: APIXABAN 5 MG TABLET PO SCH ×2 (10:05→22:06)
[2018-10-08] MEDS: AMIODARONE 200 MG TABLET PO SCH ×2 (10:05→22:06)
[2018-10-08] MEDS: LOSARTAN 50MG TABLET PO SCH (10:05)
[2018-10-08] MEDS: SODIUM CHLORIDE FLUSH 10ML SYR IVF SCH ×2 (10:05→22:07)
[2018-10-08] MEDS: HYDROCHLOROTHIAZIDE 25 MG TABLET PO SCH (10:05)
[2018-10-08] MEDS ORDERED: AMIODARONE 150 MG in DEXTROSE 5% 100 ML IV ONE (11:00)
[2018-10-08] MEDS ORDERED: FILTER 0.22 MICRON FOR AMIODARONE IV PRN (11:30)
[2018-10-08 11:50] VITALS: BP 107/71
[2018-10-08] MEDS: TRELEGY INH SCH (14:30)
[2018-10-08 14:32] VITALS: BP 111/72
[2018-10-08 20:00] VITALS: BP 111/69
[2018-10-09 01:07] VITALS: BP 104/71
[2018-10-09] MEDS: HYDROcodone/APAP 10/325 MG TABLET PO PRN ×5 (02:14→19:10)
[2018-10-09 08:32] VITALS: BP 113/80
[2018-10-09] MEDS: AMIODARONE 200 MG TABLET PO SCH (09:59)
[2018-10-09] MEDS: HYDROCHLOROTHIAZIDE 25 MG TABLET PO SCH (09:59)
[2018-10-09] MEDS: SODIUM CHLORIDE FLUSH 10ML SYR IVF SCH (09:59)
[2018-10-09] MEDS: LOSARTAN 50MG TABLET PO SCH (09:59)
[2018-10-09] MEDS: APIXABAN 5 MG TABLET PO SCH (09:59)
[2018-10-09 10:05] VITALS: BP 114/72
[2018-10-09] MEDS: TRELEGY INH SCH (10:24)
[2018-10-09] MEDS ORDERED: PROPOFOL 10 MG/ML, 20ML ONE (11:26)
[2018-10-09 12:15] VITALS: BP 110/71
[2018-10-09] MEDS ORDERED: AMIO200T42 PO (14:45)
== END 2018-10-09 19:00 | disposition home or self-care (01) | DRG 309 ==
LOC: 5SO 11:04
PROVIDERS: ADMIT Internal Medicine Cardiovascular Disease; ATTEND Internal Medicine Cardiovascular Disease
PROC: 5A2204Z Restoration of Cardiac Rhythm, Single (ICD-10-PCS; principal; 2018-10-09 13:00)
DX: I48.92 Unspecified atrial flutter (principal); D68.69 Other thrombophilia; I48.0 Paroxysmal atrial fibrillation; I10 Essential (primary) hypertension; J44.9 Chronic obstructive pulmonary disease, unspecified; Z87.891 Personal history of nicotine dependence; Z99.81 Dependence on supplemental oxygen; Z91.018 Allergy to other foods
CPT/HCPCS: 36415; 92960; J7620; 71046; 80048; 80061; 84439; 84443; 84484; 85014; 85018; 93005; 94640; G0378; J2704; J0282

== ENCOUNTER → 2018-10-14 | Outpatient (CLI) | payer MEDICAID ==
[~2018-10-14] MED LIST changes: +AMIO200T42 PO; +DILT300C44 PO; +LOSA100T14 PO
== END | disposition home or self-care (01) ==
LOC: CFH 14:04
PROVIDERS: ATTEND Nurse Practitioner Family
DX: Z12.2 Encounter for screening for malignant neoplasm of respiratory organs (principal); J43.2 Centrilobular emphysema; J84.10 Pulmonary fibrosis, unspecified; J98.11 Atelectasis; Z87.891 Personal history of nicotine dependence
CPT/HCPCS: G0297

== ENCOUNTER → 2018-10-27 | Outpatient (CLI) | payer MEDICAID | END | disposition home or self-care (01) | LOC: CVU 09:50 | PROVIDERS: ATTEND Internal Medicine Cardiovascular Disease | DX: I48.91 Unspecified atrial fibrillation (principal); I73.9 Peripheral vascular disease, unspecified; I10 Essential (primary) hypertension; Z87.891 Personal history of nicotine dependence | CPT/HCPCS: 93922 ==

== ENCOUNTER 2018-11-17 10:24 | Day surgery (SDC) | payer MEDICAID, MEDICARE, OTHER ==
[~2018-11-17] VITALS: Ht 177.8 cm; Wt 111.4 kg
[2018-11-17 11:59] VITALS: BP 150/87
[2018-11-17] MEDS ORDERED: AMIO400T5 PO (12:13)
[2018-11-17] MEDS ORDERED: METO25TA35 PO (12:13)
[2018-11-17 12:25] LABS: ANION GAP 4 mmol/L (5-15); CALCIUM 9.2 mg/dL (8.5-10.1); CHLORIDE 106 mmol/L (98-107)
[2018-11-17] MEDS ORDERED: PROPOFOL 10 MG/ML, 20ML ONE (12:51)
[2018-11-17] MEDS ORDERED: ALBUTEROL/IPRATROPIUM 2.5MG/0.5MG, 3 ML NPPB PRN (13:00)
[2018-11-17] MEDS ORDERED: ALBUTEROL/IPRATROPIUM 2.5MG/0.5MG, 3 ML ONE (13:12)
== END 2018-11-17 13:55 | disposition home or self-care (01) ==
LOC: CACL 10:24
PROVIDERS: ATTEND Internal Medicine Cardiovascular Disease
DX: I48.91 Unspecified atrial fibrillation (principal); F17.210 Nicotine dependence, cigarettes, uncomplicated; J44.9 Chronic obstructive pulmonary disease, unspecified; I10 Essential (primary) hypertension
CPT/HCPCS: 36415; 80048; 92960; 94640; J2704; J7620

== ENCOUNTER 2018-11-23 13:35 | Inpatient (IN) | payer MEDICAID ==
[~2018-11-23] VITALS: Ht 177.8 cm; Wt 129.8 kg
[~2018-11-23 13:35] MED LIST changes: +AMIO400T5 PO
--- NOTE | 2018-11-23 13:40 | NUR ---
EKG OBTAINED IN TRIAGE, REVIEWED BY EDMD.
[2018-11-23] MEDS ORDERED: DILTIAZEM 5 MG/ML, 5ML IV ONE ×2 (14:00→17:00)
[2018-11-23] MEDS ORDERED: DILTIAZEM 5 MG/ML, 10ML ONE ×2 (14:06→16:48)
--- NOTE | 2018-11-23 14:15 | NUR ---
PT PRESENTED TO ED WITH SHORTNESS OF BREATH SINCE YESTERDAY AND CHEST PAIN STARTED LAST NIGHT. PT STATED HE FELT HIS HEART RATE GOING QUITE FAST. PT A&OX4. PT PLACED ON BP, CARDIAC AND CONT. PULSE OXIMETER. ASSESSMENT [id number]. MD HAS SEEN PT AND ORDERS RECEIVED. IV STARTED IN LEFT HAND 22 GAUGE. 20MG CARDIAZEM GTT. STARTED. EKG DONE IN TRIAGE.
[2018-11-23 14:16] LABS: BASOPHILS # (AUTO) 0.05 x10^3/uL (0-0.1); BASOPHILS % (AUTO) 0 % (0-1); EOSINOPHILS # (AUTO) 0.18 x10^3/uL (0-0.4); EOSINOPHILS % (AUTO) 1 % (1-7); LYMPHOCYTES # (AUTO) 1.71 x10^3/uL (1-3.4); LYMPHOCYTES % (AUTO) 13 % (22-44); MD NO; MEAN CORPUSCULAR HEMOGLOBIN 30.9 pg (27.5-34.5); MEAN CORPUSCULAR HGB CONC 32.8 g/dL (33.2-36.2); MEAN CORPUSCULAR VOLUME 94.3 fL (81-97); MEAN PLATELET VOLUME 8.1 fL (7.4-10.4); MONOCYTES # (AUTO) 0.87 x10^3/uL (0.2-0.8); MONOCYTES % (AUTO) 6 % (2-9); NEUTROPHILS # (AUTO) 10.74 x10^3/uL (1.8-6.8); NEUTROPHILS % (AUTO) 79 % (42-75); PLATELET COUNT 168 x10^3/uL (130-400); RED BLOOD COUNT 5.86 x10^6/uL (4.38-5.82); RED CELL DISTRIBUTION WIDTH 14.5 % (9.4-14.8)
--- NOTE | 2018-11-23 14:26 | NUR ---
2ND EKG DONE AND PRESENTED TO
[2018-11-23 14:28] LABS: ALBUMIN 3.7 g/dL (3.4-5.0); ANION GAP 5 mmol/L (5-15); CALCIUM 8.5 mg/dL (8.5-10.1); CHLORIDE 102 mmol/L (98-107); CREATININE 1.05 mg/dL (0.7-1.3)
[2018-11-23] MEDS ORDERED: AMIODARONE 200 MG TABLET PO ONE (14:30)
[2018-11-23 14:32] LABS: TROPONIN I < 0.015 ng/mL (0.000-0.045)
[2018-11-23 14:33] LABS: INTERNATIONAL NORMALIZED RATIO 1.11 (0.93-1.1); PROTHROMBIN TIME 11.6 Seconds (9.6-11.5)
--- NOTE | 2018-11-23 14:34 | NUR ---
REPORT GIVEN TO OSVALDO LARA
[2018-11-23] MEDS ORDERED: AMIODARONE 200 MG TABLET ONE (14:38)
[2018-11-23] MEDS ORDERED: ONDANSETRON 2MG/ML, 2ML ONE (14:40)
[2018-11-23] MEDS ORDERED: MORPHINE SULFATE 4 MG/ML, 1ML ONE ×2 (14:41→17:32)
--- NOTE | 2018-11-23 14:46 | NUR ---
Report from Sarah LARA. Pt hr 80-90's, medicated per mar, requesting pain meds for chest and neck pain. MD notified.
[2018-11-23] MEDS ORDERED: ONDANSETRON 2MG/ML, 2ML IVPush ONE ×2 (15:00→15:30)
[2018-11-23] MEDS ORDERED: ALBUTEROL/IPRATROPIUM 2.5MG/0.5MG, 3 ML NPPB ONE (15:00)
[2018-11-23] MEDS: MORPHINE SULFATE 4 MG/ML, 1ML IVPush PRN ×2 (15:15→17:34)
--- NOTE | 2018-11-23 15:15 | NUR ---
Pt medicated for 8/10 pain per emar, denies need for zofran, states he takes norco at home and pain meds dont get him nauseas. Pt aware to notify RN if he becomes naueas.
[2018-11-23] MEDS ORDERED: ALBUTEROL/IPRATROPIUM 2.5MG/0.5MG, 3 ML ONE (15:21)
--- NOTE | 2018-11-23 15:30 | NUR ---
Pt reports decreased chest pain.
--- NOTE | 2018-11-23 15:45 | NUR ---
Chart up for recheck
--- NOTE | 2018-11-23 16:34 | NUR ---
in for recheck, pt to be admitted.
--- NOTE | 2018-11-23 16:52 | NUR ---
Pts HR up to 150's, aware, orders recieved Pt medicated per EMAR, requesting md Randy aware.
--- NOTE | 2018-11-23 17:03 | NUR ---
MARBIN SORENSON at bedside.
[2018-11-23] MEDS ORDERED: BISACODYL 10 MG SUPP PR PRN (17:30)
[2018-11-23] MEDS ORDERED: morphine SULFATE 10 MG/ML, 1ML IVPush PRN (17:30)
[2018-11-23] MEDS ORDERED: ENALAPRILAT 1.25 MG/ML, 2ML IVPush PRN (17:30)
[2018-11-23] MEDS ORDERED: ACETAMINOPHEN 325 MG TABLET PO PRN (17:30)
[2018-11-23] MEDS ORDERED: morphine SULFATE 10 MG/ML, 1ML IV PRN (17:30)
[2018-11-23] MEDS ORDERED: NITROGLYCERIN 0.4 MG BOTTLE (25 TABS) SL PRN (17:30)
[2018-11-23] MEDS ORDERED: hydrALAzine 20 MG/ML, 1ML IVPush PRN (17:30)
[2018-11-23] MEDS: SODIUM CHLORIDE FLUSH 10ML SYR IVF SCH (17:35)
--- NOTE | 2018-11-23 17:48 | NUR ---
Report to floor RN, pt ready for transport.
[2018-11-23] MEDS ORDERED: AZITHROMYCIN 500 MG TABLET PO ONE (18:00)
[2018-11-23 18:10] LABS: TROPONIN I < 0.015 ng/mL (0.000-0.045)
[2018-11-23 18:11] VITALS: BP 119/75
[2018-11-23] MEDS ORDERED: ALBUTEROL SULFATE 2.5 MG/3 ML HHN PRN (18:30)
[2018-11-23] MEDS: DILTIAZEM 125 MG in SODIUM CHLORIDE 0.9% 100 ML IV SCH (19:03)
[2018-11-23] MEDS ORDERED: ALBUTEROL/IPRATROPIUM 2.5MG/0.5MG, 3 ML NPPB PRN (20:00)
[2018-11-23] MEDS: APIXABAN 5 MG TABLET PO SCH (20:13)
[2018-11-23] MEDS: HYDROcodone/APAP 10/325 MG TABLET PO SCH (20:14)
[2018-11-23] MEDS: METOPROLOL TARTRATE 50 MG TABLET PO SCH (20:14)
[2018-11-23 20:46] LABS: TROPONIN I < 0.015 ng/mL (0.000-0.045)
[2018-11-23] MEDS: BUDESONIDE 0.5 MG/2 ML INHA NPPB SCH (21:00)
[2018-11-23] MEDS: ALBUTEROL/IPRATROPIUM 2.5MG/0.5MG, 3 ML NPPB SCH (21:00)
[2018-11-24 00:25] VITALS: BP 111/70
[2018-11-24] MEDS: ALBUTEROL/IPRATROPIUM 2.5MG/0.5MG, 3 ML NPPB SCH ×3 (03:00→15:00)
[2018-11-24] MEDS: HYDROcodone/APAP 10/325 MG TABLET PO SCH ×4 (05:01→21:04)
[2018-11-24 05:24] LABS: BASOPHILS # (AUTO) 0.01 x10^3/uL (0-0.1); BASOPHILS % (AUTO) 0 % (0-1); EOSINOPHILS # (AUTO) 0.01 x10^3/uL (0-0.4); EOSINOPHILS % (AUTO) 0 % (1-7); LYMPHOCYTES # (AUTO) 0.88 x10^3/uL (1-3.4); LYMPHOCYTES % (AUTO) 8 % (22-44); MD NO; MEAN CORPUSCULAR HEMOGLOBIN 31.5 pg (27.5-34.5); MEAN CORPUSCULAR HGB CONC 33.6 g/dL (33.2-36.2); MEAN CORPUSCULAR VOLUME 93.6 fL (81-97); MEAN PLATELET VOLUME 8.3 fL (7.4-10.4); MONOCYTES # (AUTO) 0.58 x10^3/uL (0.2-0.8); MONOCYTES % (AUTO) 5 % (2-9); NEUTROPHILS # (AUTO) 10.21 x10^3/uL (1.8-6.8); NEUTROPHILS % (AUTO) 87 % (42-75); PLATELET COUNT 129 x10^3/uL (130-400); RED BLOOD COUNT 5.36 x10^6/uL (4.38-5.82); RED CELL DISTRIBUTION WIDTH 14.1 % (9.4-14.8)
[2018-11-24 05:32] LABS: ALANINE AMINOTRANSFERASE 22 U/L (12-78); ALBUMIN 3.6 g/dL (3.4-5.0); ANION GAP 3 mmol/L (5-15); CALCIUM 8.8 mg/dL (8.5-10.1); CHLORIDE 102 mmol/L (98-107)
[2018-11-24 05:43] LABS: ALKALINE PHOSPHATASE 75 U/L (45-117); BILIRUBIN,TOTAL 0.5 mg/dL (0.2-1.0); CREATININE 0.98 mg/dL (0.7-1.3); TOTAL PROTEIN 6.5 g/dL (6.4-8.2)
[2018-11-24] MEDS ORDERED: MAGNESIUM OXIDE 400 MG TABLET PO ONE (07:00)
[2018-11-24 07:14] LABS: HEMOGLOBIN A1C 5.5 % (4.2-6.3)
[2018-11-24 07:25] VITALS: BP 128/81
[2018-11-24] MEDS: BUDESONIDE 0.5 MG/2 ML INHA NPPB SCH ×2 (07:37→20:59)
[2018-11-24] MEDS: SENNA/DOCUSATE TABLET PO SCH (08:59)
[2018-11-24] MEDS: AZITHROMYCIN 250 MG TABLET PO SCH (09:00)
[2018-11-24] MEDS: (Fluticasone/Umeclidin/Vilanter (Trelegy Ellipta 100-62.5-25) HOMEMEDPO SCH (09:00)
[2018-11-24] MEDS: METOPROLOL TARTRATE 50 MG TABLET PO SCH ×2 (09:00→21:05)
[2018-11-24] MEDS: LOSARTAN 50MG TABLET PO SCH (09:00)
[2018-11-24] MEDS: AMIODARONE 200 MG TABLET PO SCH (09:00)
[2018-11-24] MEDS: APIXABAN 5 MG TABLET PO SCH ×2 (09:00→21:04)
[2018-11-24] MEDS: DILTIAZEM 125 MG in SODIUM CHLORIDE 0.9% 100 ML IV SCH ×3 (09:37→21:06)
[2018-11-24] MEDS: SODIUM CHLORIDE FLUSH 10ML SYR IVF SCH ×2 (10:20→21:06)
[2018-11-24 12:21] VITALS: BP 107/66
[2018-11-24 19:09] VITALS: BP 101/68
[2018-11-25 01:02] VITALS: BP 96/62
[2018-11-25 05:12] LABS: BASOPHILS # (AUTO) 0.05 x10^3/uL (0-0.1); BASOPHILS % (AUTO) 1 % (0-1); EOSINOPHILS # (AUTO) 0.15 x10^3/uL (0-0.4); EOSINOPHILS % (AUTO) 1 % (1-7); LYMPHOCYTES # (AUTO) 2.67 x10^3/uL (1-3.4); LYMPHOCYTES % (AUTO) 23 % (22-44); MD NO; MEAN CORPUSCULAR HEMOGLOBIN 31.6 pg (27.5-34.5); MEAN CORPUSCULAR HGB CONC 33.5 g/dL (33.2-36.2); MEAN CORPUSCULAR VOLUME 94.4 fL (81-97); MEAN PLATELET VOLUME 8.4 fL (7.4-10.4); MONOCYTES # (AUTO) 1.06 x10^3/uL (0.2-0.8); MONOCYTES % (AUTO) 9 % (2-9); NEUTROPHILS # (AUTO) 7.53 x10^3/uL (1.8-6.8); NEUTROPHILS % (AUTO) 66 % (42-75); PLATELET COUNT 130 x10^3/uL (130-400); RED BLOOD COUNT 5.03 x10^6/uL (4.38-5.82); RED CELL DISTRIBUTION WIDTH 14.1 % (9.4-14.8)
[2018-11-25 05:22] LABS: ALBUMIN 3.6 g/dL (3.4-5.0); CALCIUM 8.5 mg/dL (8.5-10.1); CHLORIDE 103 mmol/L (98-107)
[2018-11-25 05:25] LABS: ALANINE AMINOTRANSFERASE 24 U/L (12-78); ALKALINE PHOSPHATASE 71 U/L (45-117); BILIRUBIN,TOTAL 0.4 mg/dL (0.2-1.0); CREATININE 1.15 mg/dL (0.7-1.3); TOTAL PROTEIN 6.2 g/dL (6.4-8.2)
[2018-11-25 05:30] LABS: ANION GAP 5 mmol/L (5-15)
[2018-11-25] MEDS: HYDROcodone/APAP 10/325 MG TABLET PO SCH ×2 (06:02→11:05)
[2018-11-25 07:47] VITALS: BP 119/77
[2018-11-25] MEDS: SENNA/DOCUSATE TABLET PO SCH (08:39)
[2018-11-25] MEDS: LOSARTAN 50MG TABLET PO SCH (08:39)
[2018-11-25] MEDS: AZITHROMYCIN 250 MG TABLET PO SCH (08:40)
[2018-11-25] MEDS: METOPROLOL TARTRATE 50 MG TABLET PO SCH (08:40)
[2018-11-25] MEDS: (Fluticasone/Umeclidin/Vilanter (Trelegy Ellipta 100-62.5-25) HOMEMEDPO SCH (08:40)
[2018-11-25] MEDS: SODIUM CHLORIDE FLUSH 10ML SYR IVF SCH (08:40)
[2018-11-25] MEDS: AMIODARONE 200 MG TABLET PO SCH (08:40)
[2018-11-25] MEDS: APIXABAN 5 MG TABLET PO SCH (08:40)
[2018-11-25] MEDS: BUDESONIDE 0.5 MG/2 ML INHA NPPB SCH (10:45)
[2018-11-25 12:32] VITALS: BP 116/75
[2018-11-25] MEDS ORDERED: IPRATROPIUM 0.5 MG/2.5 ML INHA HHN SCH (13:00)
[2018-11-25] MEDS ORDERED: PRED50TA PO (14:01)
[2018-11-25] MEDS ORDERED: AZIT250T PO (14:05)
== END 2018-11-25 16:28 | disposition home or self-care (01) | DRG 308 ==
LOC: ED 14:31 → EDIP 17:38 → 5SO 18:03
PROVIDERS: ADMIT Student in an Organized Health Care Education/Training Program; ATTEND Student in an Organized Health Care Education/Training Program
DX: I48.0 Paroxysmal atrial fibrillation (principal); J96.21 Acute and chronic respiratory failure with hypoxia; F17.200 Nicotine dependence, unspecified, uncomplicated; I48.92 Unspecified atrial flutter; I49.3 Ventricular premature depolarization; J43.9 Emphysema, unspecified; I10 Essential (primary) hypertension; Z82.49 Family history of ischemic heart disease and other diseases of the circulatory system; Z83.6 Family history of other diseases of the respiratory system; Z83.3 Family history of diabetes mellitus; Z86.14 Personal history of Methicillin resistant Staphylococcus aureus infection; Z98.1 Arthrodesis status; Z87.01 Personal history of pneumonia (recurrent)
CPT/HCPCS: 36415; 99291; J7620; J7626; 71045; 80048; 80053; 82040; 83036; 83735; 84100; 84443; 84484; 85025; 85610; 85730; 93005; 94640; 96374; 96375; 96376; G0378; J7512

== ENCOUNTER → 2019-03-02 | Outpatient (CLI) | payer MEDICAID ==
[~2019-03-02] MED LIST changes: -FLUT16SP NAS; +FLUT16SP24 NAS; +LOSA1TAB22 PO; +Nebulizer; +OMNIPAQUE 350 MG/ML, 150 ML BOTTLE ONE; +Oxygen; +PRED50TA PO; +TIOT18CA INH
== END | disposition home or self-care (01) ==
LOC: CFH 12:43
PROVIDERS: ATTEND Internal Medicine Cardiovascular Disease
DX: J44.9 Chronic obstructive pulmonary disease, unspecified (principal); I48.91 Unspecified atrial fibrillation
CPT/HCPCS: 71046; 75572; 82565; Q9967

== ENCOUNTER 2019-03-04 06:35 | Observation (INO) | payer MEDICAID ==
[~2019-03-04] VITALS: Ht 177.8 cm; Wt 113.6 kg
== END 2019-03-04 14:07 | disposition home or self-care (01) ==
LOC: CACL 06:35 → ORIP 09:15
PROVIDERS: ADMIT Internal Medicine Cardiovascular Disease; ATTEND Internal Medicine Cardiovascular Disease
DX: I48.92 Unspecified atrial flutter (principal); I48.91 Unspecified atrial fibrillation; J44.9 Chronic obstructive pulmonary disease, unspecified; I10 Essential (primary) hypertension; Z79.01 Long term (current) use of anticoagulants; Z79.899 Other long term (current) drug therapy; Z99.81 Dependence on supplemental oxygen
CPT/HCPCS: 36415; 80053; 85025; 85610; 85730; 93312; 93321; 93325; 93613; 93621; 93653; 94640; C1730; C1732; C1894; G0378; J0330; J1100; J2250; J2405; J2704; J3010; J3490; J7613

== ENCOUNTER 2019-10-12 16:50 | Inpatient (IN) | payer MEDICAID ==
[~2019-10-12] VITALS: Ht 177.8 cm; Wt 120.0 kg
[~2019-10-12 16:50] MED LIST changes: -ACLI400A2 INH; +ACLI400A3 INH; -ALBU6.7H INH; +ALBU6.7H8 INH; +LINE600T15 PO; -LINE600T33 PO; -OMNIPAQUE 350 MG/ML, 150 ML BOTTLE ONE
[2019-10-12] MEDS ORDERED: SODIUM CHLORIDE FLUSH 10ML SYR IVF ONE (17:30)
[2019-10-12 18:56] LABS: BASOPHILS # (AUTO) 0.04 x10^3/uL (0-0.1); BASOPHILS % (AUTO) 0 % (0-1); EOSINOPHILS # (AUTO) 0.24 x10^3/uL (0-0.4); EOSINOPHILS % (AUTO) 2 % (1-7); LYMPHOCYTES # (AUTO) 1.94 x10^3/uL (1-3.4); LYMPHOCYTES % (AUTO) 15 % (22-44); MD NO; MEAN CORPUSCULAR HEMOGLOBIN 32.1 pg (27.5-34.5); MEAN CORPUSCULAR VOLUME 94.3 fL (81-97); MEAN PLATELET VOLUME 7.8 fL (7.4-10.4); MONOCYTES # (AUTO) 0.77 x10^3/uL (0.2-0.8); MONOCYTES % (AUTO) 6 % (2-9); NEUTROPHILS % (AUTO) 76 % (42-75); PLATELET COUNT 139 x10^3/uL (130-400); RED BLOOD COUNT 5.24 x10^6/uL (4.38-5.82); RED CELL DISTRIBUTION WIDTH 13.8 % (9.4-14.8)
[2019-10-12 19:02] LABS: ALANINE AMINOTRANSFERASE 24 U/L (12-78); ALBUMIN 3.7 g/dL (3.4-5.0); ANION GAP 7 mmol/L (5-15); CALCIUM 8.6 mg/dL (8.5-10.1); CHLORIDE 95 mmol/L (98-107); CREATININE 0.99 mg/dL (0.7-1.3)
[2019-10-12 19:04] LABS: ALKALINE PHOSPHATASE 83 U/L (45-117); BILIRUBIN,TOTAL 0.4 mg/dL (0.2-1.0); TOTAL PROTEIN 7.1 g/dL (6.4-8.2)
--- NOTE | 2019-10-12 19:44 | NUR ---
PT CALLED TO ROOM FROM LOBBY
--- NOTE | 2019-10-12 19:51 | NUR ---
PT HERE WITH C/O WOUND TO RIGHT LEG. PT STATES 6 WEEKS HE HAS HAD THIS WOUND, DOING WOUND CARE AT HOME BUT UNSUCCESSFUL. PT DOES STATE PAIN AND SWELLING. MD AT BEDSIDE. PT NAD, AAO X 4, DRESSED IN GOWN AND ON MONITOR. CULTURES PERFORMED. PLAN FOR ADMISSION. SIDERAIL X [address] CALL LIGHT WITHIN REACH. PT WEARS 3L NC BASELINE AT HOME.
[2019-10-12] MEDS ORDERED: PIPERACILLIN/TAZO/PMX 4.5GM 100 ML IVPB ONE (20:00)
[2019-10-12] MEDS ORDERED: VANCOMYCIN PER PHARMACY MC ONE (20:00)
--- NOTE | 2019-10-12 20:09 | NUR ---
PIV ESTABLISHED BY THIS RN.
[2019-10-12] MEDS ORDERED: LOSA100T14 PO (20:12)
[2019-10-12] MEDS ORDERED: METO200T47 PO (20:12)
[2019-10-12] MEDS ORDERED: HYDR25TA6 PO (20:12)
[2019-10-12] MEDS ORDERED: AMIO100T4 PO (20:12)
--- NOTE | 2019-10-12 20:12 | NUR ---
MED REC COMPLETED BY THIS RN.
[2019-10-12] MEDS ORDERED: VANCOMYCIN 2,000 MG in SODIUM CHLORIDE 0.9% 500 ML IV ONE (20:30)
[2019-10-12] MEDS ORDERED: PHARMACOKINETIC CONSULTATION MC ONE (20:30)
--- NOTE | 2019-10-12 20:50 | NUR ---
PT MEDICATED PER ORDERS.
--- NOTE | 2019-10-12 20:54 | NUR ---
REPORT FROM JANE OLIVARES TO ASSUME PT. CARE AT THIS TIME.
[2019-10-12] MEDS ORDERED: SODIUM CHLORIDE FLUSH 10ML SYR IVF PRN (21:00)
--- NOTE | 2019-10-12 21:05 | NUR ---
REPORT GIVEN TO JANE BULLOCK. CARE TRANSFERRED.
--- NOTE | 2019-10-12 21:10 | NUR ---
VS UPDATED. IV ABX ARE INFUSIGN PER MAR. PT. PROVIDED WITH URINAL. DENIES OTHER NEEDS.
[2019-10-12] MEDS ORDERED: ONDANSETRON 2MG/ML, 2ML ONE (21:27)
[2019-10-12] MEDS ORDERED: MORPHINE SULFATE 4 MG/ML, 1ML ONE ×2 (21:27→22:59)
[2019-10-12] MEDS ORDERED: ONDANSETRON 2MG/ML, 2ML IVPush ONE (21:30)
[2019-10-12] MEDS: MORPHINE SULFATE 4 MG/ML, 1ML IVPush PRN ×2 (21:30→23:05)
--- NOTE | 2019-10-12 21:35 | NUR ---
PT. MEDICATED PER MAR. SORENSON IN TO FE PT. FOR ADMISSISON .
[2019-10-12] MEDS ORDERED: LABETALOL 5MG/ML, 20ML IVPush PRN (22:00)
[2019-10-12] MEDS ORDERED: POLYETHYLENE GLYCOL 17 GM PACKET PO PRN (22:00)
[2019-10-12] MEDS ORDERED: ONDANSETRON 2MG/ML, 2ML IVPush PRN (22:00)
[2019-10-12] MEDS ORDERED: VANCOMYCIN PER PHARMACY MC PRN (22:00)
[2019-10-12] MEDS ORDERED: DOCUSATE 100 MG CAPSULE PO PRN (22:00)
[2019-10-12] MEDS ORDERED: ALBUTEROL/IPRATROPIUM 2.5MG/0.5MG, 3 ML NPPB PRN (22:30)
[2019-10-12] MEDS ORDERED: APIXABAN 5 MG TABLET ONE (22:58)
[2019-10-12] MEDS ORDERED: HYDROcodone/APAP 5/325 TABLET ONE ×2 (22:59→23:03)
[2019-10-12] MEDS ORDERED: DOCUSATE 100 MG CAPSULE ONE (23:03)
[2019-10-12] MEDS: HYDROcodone/APAP 5/325 TABLET PO PRN (23:04)
[2019-10-12] MEDS: APIXABAN 5 MG TABLET PO SCH (23:05)
[2019-10-12] MEDS: AMPICILLIN/SULBACTAM 3 GM in SODIUM CHLORIDE 0.9% 100 ML IV SCH (23:11)
--- NOTE | 2019-10-13 01:36 | NUR ---
BS REPORT TO JANE MARTINEZ.
[2019-10-13 05:37] LABS: BASOPHILS # (AUTO) 0.05 x10^3/uL (0-0.1); BASOPHILS % (AUTO) 0 % (0-1); EOSINOPHILS # (AUTO) 0.21 x10^3/uL (0-0.4); EOSINOPHILS % (AUTO) 2 % (1-7); LYMPHOCYTES # (AUTO) 1.56 x10^3/uL (1-3.4); LYMPHOCYTES % (AUTO) 12 % (22-44); MD NO; MEAN CORPUSCULAR HEMOGLOBIN 31.5 pg (27.5-34.5); MEAN CORPUSCULAR HGB CONC 33.3 g/dL (33.2-36.2); MEAN CORPUSCULAR VOLUME 94.9 fL (81-97); MEAN PLATELET VOLUME 7.6 fL (7.4-10.4); MONOCYTES # (AUTO) 0.86 x10^3/uL (0.2-0.8); MONOCYTES % (AUTO) 7 % (2-9); NEUTROPHILS # (AUTO) 9.98 x10^3/uL (1.8-6.8); NEUTROPHILS % (AUTO) 79 % (42-75); PLATELET COUNT 130 x10^3/uL (130-400); RED CELL DISTRIBUTION WIDTH 13.8 % (9.4-14.8)
[2019-10-13 05:38] LABS: HCT (SEDRATE) 48.1 % (39.2-51.8)
[2019-10-13 05:50] LABS: ANION GAP 2 mmol/L (5-15); CALCIUM 8.4 mg/dL (8.5-10.1); CHLORIDE 98 mmol/L (98-107); CREATININE 1.27 mg/dL (0.7-1.3)
[2019-10-13] MEDS ORDERED: HYDROcodone/APAP 10/325 MG TABLET ONE (06:01)
[2019-10-13] MEDS: AMPICILLIN/SULBACTAM 3 GM in SODIUM CHLORIDE 0.9% 100 ML IV SCH ×3 (06:10→22:31)
[2019-10-13] MEDS: HYDROcodone/APAP 10/325 MG TABLET PO SCH ×5 (06:11→21:00)
[2019-10-13] MEDS ORDERED: ALBUTEROL/IPRATROPIUM 2.5MG/0.5MG, 3 ML ONE (06:13)
[2019-10-13] MEDS: IPRATROPIUM 0.5 MG/2.5 ML INHA NPPB SCH ×2 (06:16→20:15)
--- NOTE | 2019-10-13 07:37 | NUR ---
PT IN ON HOSPITAL BED C/O CHEST PAIN EKG WAS DONE NO OTHER CHANGED VSS STABLE PT IS ON 8 LITER OF OXYGEN ON OXYMASK DENIED SOB AT THIS TIME CALL LIGHT WITHIN REACH NO NEEDS
[2019-10-13] MEDS ORDERED: HYDROcodone/APAP 5/325 TABLET ONE (08:43)
[2019-10-13] MEDS ORDERED: APIXABAN 5 MG TABLET ONE (08:43)
[2019-10-13 08:48] VITALS: BP 135/54
[2019-10-13] MEDS: APIXABAN 5 MG TABLET PO SCH ×2 (08:49→19:45)
[2019-10-13] MEDS: HYDROcodone/APAP 5/325 TABLET PO PRN (08:50)
[2019-10-13] MEDS: LOSARTAN 100 MG TAB PO SCH (09:41)
[2019-10-13] MEDS: HYDROCHLOROTHIAZIDE 25 MG TABLET PO SCH (09:41)
[2019-10-13] MEDS: METOPROLOL SUCCINATE 100 MG TAB.ER.24H PO SCH (09:41)
[2019-10-13] MEDS ORDERED: AMIODARONE 200 MG TABLET PO SCH (10:00)
[2019-10-13 11:05] VITALS: BP 122/72
[2019-10-13] MEDS ORDERED: PHARMACOKINETIC MONITORING MC PRN (11:30)
[2019-10-13 13:51] VITALS: BP 96/53
[2019-10-13] MEDS: VANCOMYCIN 2,000 MG in SODIUM CHLORIDE 0.9% 500 ML IV SCH (15:13)
[2019-10-13 19:48] VITALS: BP 102/63
[2019-10-13 20:01] VITALS: BP 105/65
[2019-10-13] MEDS: BUDESONIDE 0.5 MG/2 ML INHA INH SCH (20:15)
[2019-10-14 01:18] VITALS: BP 123/73
[2019-10-14] MEDS: HYDROcodone/APAP 5/325 TABLET PO PRN (02:00)
[2019-10-14] MEDS: IPRATROPIUM 0.5 MG/2.5 ML INHA NPPB SCH ×4 (02:25→14:45)
[2019-10-14] MEDS: HYDROcodone/APAP 10/325 MG TABLET PO SCH ×3 (05:05→16:29)
[2019-10-14 05:39] LABS: BASOPHILS # (AUTO) 0.01 x10^3/uL (0-0.1); BASOPHILS % (AUTO) 0 % (0-1); EOSINOPHILS # (AUTO) 0.27 x10^3/uL (0-0.4); EOSINOPHILS % (AUTO) 3 % (1-7); LYMPHOCYTES # (AUTO) 1.26 x10^3/uL (1-3.4); LYMPHOCYTES % (AUTO) 12 % (22-44); MD NO; MEAN CORPUSCULAR HGB CONC 33.7 g/dL (33.2-36.2); MEAN CORPUSCULAR VOLUME 95.1 fL (81-97); MEAN PLATELET VOLUME 8.5 fL (7.4-10.4); MONOCYTES # (AUTO) 0.79 x10^3/uL (0.2-0.8); MONOCYTES % (AUTO) 8 % (2-9); NEUTROPHILS # (AUTO) 8.06 x10^3/uL (1.8-6.8); NEUTROPHILS % (AUTO) 78 % (42-75); PLATELET COUNT 131 x10^3/uL (130-400); RED BLOOD COUNT 4.63 x10^6/uL (4.38-5.82); RED CELL DISTRIBUTION WIDTH 13.8 % (9.4-14.8)
[2019-10-14] MEDS: AMPICILLIN/SULBACTAM 3 GM in SODIUM CHLORIDE 0.9% 100 ML IV SCH ×2 (05:40→13:41)
[2019-10-14 05:48] LABS: CALCIUM 8.5 mg/dL (8.5-10.1); CHLORIDE 99 mmol/L (98-107); CREATININE 1.01 mg/dL (0.7-1.3)
[2019-10-14 06:08] LABS: ANION GAP 4 mmol/L (5-15)
[2019-10-14 08:03] VITALS: BP 143/81
[2019-10-14] MEDS: HYDROCHLOROTHIAZIDE 25 MG TABLET PO SCH (08:22)
[2019-10-14] MEDS: LOSARTAN 100 MG TAB PO SCH (08:22)
[2019-10-14] MEDS: APIXABAN 5 MG TABLET PO SCH (08:23)
[2019-10-14] MEDS: METOPROLOL SUCCINATE 100 MG TAB.ER.24H PO SCH (08:23)
[2019-10-14] MEDS: VANCOMYCIN 2,000 MG in SODIUM CHLORIDE 0.9% 500 ML IV SCH (08:25)
[2019-10-14] MEDS: BUDESONIDE 0.5 MG/2 ML INHA INH SCH (09:19)
[2019-10-14 14:00] VITALS: BP 97/61
[2019-10-14 15:32] VITALS: BP 102/69
== END 2019-10-14 18:30 | disposition home health service (06) | DRG 383 ==
LOC: ED 22:55 → EDIP 10-13 00:06 → 4WST 10-13 10:39
PROVIDERS: ADMIT Family Medicine; ATTEND Family Medicine
DX: L03.115 Cellulitis of right lower limb (principal); R65.10 Systemic inflammatory response syndrome (SIRS) of non-infectious origin without acute organ dysfunction; I48.20 Chronic atrial fibrillation, unspecified; Z99.81 Dependence on supplemental oxygen; F17.200 Nicotine dependence, unspecified, uncomplicated; L02.415 Cutaneous abscess of right lower limb; G89.29 Other chronic pain; J43.9 Emphysema, unspecified; Z66 Do not resuscitate; F10.10 Alcohol abuse, uncomplicated; I10 Essential (primary) hypertension; Z79.01 Long term (current) use of anticoagulants; Z79.4 Long term (current) use of insulin; Z86.14 Personal history of Methicillin resistant Staphylococcus aureus infection; Z98.1 Arthrodesis status; Z82.49 Family history of ischemic heart disease and other diseases of the circulatory system; Z91.018 Allergy to other foods
CPT/HCPCS: 36415; 71045; 80048; 80053; 83036; 83605; 83735; 83880; 84100; 85025; 85651; 86140; 87040; 87070; 87075; 87077; 87147; 87186; 87205; 93005; 94640; 99285; G0378; J0295; J2405; J2543; J3370; J7626; J7644; J2270; J7040

== ENCOUNTER 2019-10-28 08:26 | Emergency (ER) | payer MEDICAID ==
[~2019-10-28] VITALS: Ht 177.8 cm; Wt 118.0 kg
[~2019-10-28 08:26] MED LIST changes: +AMIO100T4 PO; +HYDR25TA6 PO
[2019-10-28 08:36] VITALS: BP 108/52
[2019-10-28 10:35] LABS: RAPID INFLUENZA A Negative (Negative); RAPID INFLUENZA B Negative (Negative)
[2019-10-28 10:35] LABS: BASOPHILS # (AUTO) 0.09 x10^3/uL (0-0.1); BASOPHILS % (AUTO) 1 % (0-1); EOSINOPHILS # (AUTO) 0.55 x10^3/uL (0-0.4); EOSINOPHILS % (AUTO) 4 % (1-7); LYMPHOCYTES # (AUTO) 2.87 x10^3/uL (1-3.4); LYMPHOCYTES % (AUTO) 21 % (22-44); MD NO; MEAN CORPUSCULAR HEMOGLOBIN 31.5 pg (27.5-34.5); MEAN CORPUSCULAR HGB CONC 33.3 g/dL (33.2-36.2); MEAN CORPUSCULAR VOLUME 94.6 fL (81-97); MEAN PLATELET VOLUME 7.6 fL (7.4-10.4); MONOCYTES # (AUTO) 1.22 x10^3/uL (0.2-0.8); MONOCYTES % (AUTO) 9 % (2-9); NEUTROPHILS # (AUTO) 8.72 x10^3/uL (1.8-6.8); NEUTROPHILS % (AUTO) 65 % (42-75); PLATELET COUNT 189 x10^3/uL (130-400); RED BLOOD COUNT 5.43 x10^6/uL (4.38-5.82); RED CELL DISTRIBUTION WIDTH 13.7 % (9.4-14.8)
[2019-10-28 10:39] LABS: ALANINE AMINOTRANSFERASE 22 U/L (12-78); ALBUMIN 3.4 g/dL (3.4-5.0); ANION GAP 7 mmol/L (5-15); CALCIUM 8.3 mg/dL (8.5-10.1); CHLORIDE 99 mmol/L (98-107); CREATININE 2.41 mg/dL (0.7-1.3)
[2019-10-28 10:43] LABS: ALKALINE PHOSPHATASE 83 U/L (45-117); BILIRUBIN,TOTAL 0.3 mg/dL (0.2-1.0); TOTAL PROTEIN 6.8 g/dL (6.4-8.2); TROPONIN I < 0.015 ng/mL (0.000-0.045)
[2019-10-28] MEDS ORDERED: SODIUM CHLORIDE 0.9% 1,000ML IVBOLUS ONE (11:00)
[2019-10-28] MEDS ORDERED: SODIUM CHLORIDE FLUSH 10ML SYR IVF ONE (11:00)
[2019-10-28] MEDS ORDERED: HYDROcodone/APAP 10/325 MG TABLET PO ONE (11:30)
[2019-10-28] MEDS ORDERED: HYDROcodone/APAP 10/325 MG TABLET ONE (11:32)
--- NOTE | 2019-10-28 12:16 | NUR ---
PHONE NUMBER: [phone]
== END 2019-10-28 12:18 | disposition home or self-care (01) ==
LOC: ED 09:09
DX: R05 Cough (principal); Z20.828 Contact with and (suspected) exposure to other viral communicable diseases; R09.3 Abnormal sputum; R09.02 Hypoxemia; I10 Essential (primary) hypertension; J44.9 Chronic obstructive pulmonary disease, unspecified; I48.91 Unspecified atrial fibrillation; F17.200 Nicotine dependence, unspecified, uncomplicated; Z90.89 Acquired absence of other organs
CPT/HCPCS: 36415; 71045; 80053; 83880; 84484; 85025; 87400; 93005; 99285; J7030

== ENCOUNTER 2019-11-05 17:32 | Inpatient (IN) | payer MEDICAID ==
[~2019-11-05] VITALS: Ht 177.8 cm; Wt 126.4 kg
[2019-11-05] MEDS ORDERED: METOPROLOL 1 MG/ML, 5ML ONE ×2 (17:41→17:57)
[2019-11-05] MEDS ORDERED: LORazepam 2 MG/ML, 1ML ONE (17:42)
[2019-11-05] MEDS ORDERED: HYDR-3245 PO (17:46)
--- NOTE | 2019-11-05 17:51 | NUR ---
BIB [facility]B/CP - HX PAROXYSMAL AFIB, RECENT MED CHANGES 10/01, RECENT COVID TEST NEGATIVE. HX HTN, COPD ON 2L BASELINE, NOW ON 4L. 300CC NS REC'D IN ROUTE. PT PLACED ON MONITOR, EKG DONE, PT IN AFIB 121-149BPM. PT MEDICATED WITH ATIVAN. METOPROLOL ORDERED FROM PHARM NOT IN OMNICELL. CALL LIGHT WITHIN REACH. PT TO BE ADMITTED.
[2019-11-05 17:59] LABS: BASOPHILS # (AUTO) 0.03 x10^3/uL (0-0.1); BASOPHILS % (AUTO) 0 % (0-1); EOSINOPHILS % (AUTO) 1 % (1-7); LYMPHOCYTES # (AUTO) 1.38 x10^3/uL (1-3.4); LYMPHOCYTES % (AUTO) 9 % (22-44); MD NO; MEAN CORPUSCULAR HEMOGLOBIN 31.9 pg (27.5-34.5); MEAN CORPUSCULAR HGB CONC 33.3 g/dL (33.2-36.2); MEAN CORPUSCULAR VOLUME 95.8 fL (81-97); MEAN PLATELET VOLUME 6.9 fL (7.4-10.4); MONOCYTES % (AUTO) 6 % (2-9); NEUTROPHILS # (AUTO) 13.16 x10^3/uL (1.8-6.8); NEUTROPHILS % (AUTO) 84 % (42-75); PLATELET COUNT 171 x10^3/uL (130-400); RED BLOOD COUNT 5.44 x10^6/uL (4.38-5.82); RED CELL DISTRIBUTION WIDTH 13.2 % (9.4-14.8)
[2019-11-05] MEDS: METOPROLOL 1 MG/ML, 5ML IVPush PRN ×2 (17:59→18:09)
[2019-11-05] MEDS ORDERED: LORazepam 2 MG/ML, 1ML IVPush ONE (18:00)
[2019-11-05] MEDS ORDERED: SODIUM CHLORIDE FLUSH 10ML SYR IVF ONE (18:00)
[2019-11-05] MEDS ORDERED: PLEASE ENTER HEIGHT AND WEIGHT MC SCH (18:00)
[2019-11-05] MEDS ORDERED: HYDROcodone/APAP 10/325 MG TABLET PO ONE ×2 (18:00→23:00)
[2019-11-05 18:10] LABS: ALANINE AMINOTRANSFERASE 20 U/L (12-78); ALBUMIN 3.3 g/dL (3.4-5.0); ANION GAP 2 mmol/L (5-15); CALCIUM 8.4 mg/dL (8.5-10.1); CHLORIDE 96 mmol/L (98-107); CREATININE 0.93 mg/dL (0.7-1.3)
--- NOTE | 2019-11-05 18:10 | NUR ---
PT GIVEN 2ND DOSE OF METOPROLOL WITH A BOLUS OF 500CC NS PER MD
[2019-11-05 18:15] LABS: ALKALINE PHOSPHATASE 80 U/L (45-117); BILIRUBIN,TOTAL 0.3 mg/dL (0.2-1.0); TOTAL PROTEIN 6.6 g/dL (6.4-8.2); TROPONIN I < 0.015 ng/mL (0.000-0.045)
[2019-11-05] MEDS ORDERED: MAGNESIUM SULFATE PMX 2GM/50ML 50 ML ONE (18:22)
--- NOTE | 2019-11-05 18:24 | NUR ---
PT IN SR RATE 60-64BPM, TECH AT BEDSIDE FOR REPEAT EKG
[2019-11-05] MEDS ORDERED: MAGNESIUM SULFATE PMX 2GM/50ML 50 ML IV ONE (18:30)
[2019-11-05] MEDS ORDERED: SODIUM CHLORIDE 0.9%, 500ML IVBOLUS ONE (18:30)
[2019-11-05 19:02] LABS: INTERNATIONAL NORMALIZED RATIO 1.07 (0.93-1.1); PROTHROMBIN TIME 11.3 Seconds (9.6-11.5)
--- NOTE | 2019-11-05 19:03 | NUR ---
REPORT FROM VERNA RN. PT RESTING. VSS. PT WAITING FOR ROOM. CALL LIGHT IN REACH
--- NOTE | 2019-11-05 19:36 | NUR ---
ADMITTING MD AT BEDSIDE
[2019-11-05] MEDS ORDERED: ENALAPRILAT 1.25 MG/ML, 2ML IVPush PRN (20:30)
[2019-11-05] MEDS ORDERED: ONDANSETRON 2MG/ML, 2ML IVPush PRN (20:30)
[2019-11-05] MEDS ORDERED: NICOTINE 14MG/24 HR PATCH.TD24 TD SCH (20:30)
[2019-11-05] MEDS ORDERED: DILTIAZEM 5 MG/ML, 5ML IVPush PRN (20:30)
[2019-11-05] MEDS ORDERED: ONDANSETRON ODT 4 MG PO PRN (20:30)
[2019-11-05] MEDS ORDERED: ENOXAPARIN 30 MG/0.3 ML SQ SCH (20:30)
[2019-11-05 21:00] VITALS: BP 115/78
[2019-11-05] MEDS ORDERED: HYDROcodone/APAP 10/325 MG TABLET PO PRN (21:00)
[2019-11-05] MEDS ORDERED: IPRATROPIUM 0.5 MG/2.5 ML INHA NPPB PRN (21:00)
[2019-11-05] MEDS ORDERED: ALBUTEROL SULFATE 90 MCG INH PRN (21:00)
[2019-11-05] MEDS ORDERED: ALBUTEROL SULFATE 2.5 MG/3 ML NPPB PRN (21:00)
[2019-11-05] MEDS: SODIUM CHLORIDE 0.9% 1,000 ML IV SCH (21:14)
[2019-11-05] MEDS: APIXABAN 5 MG TABLET PO SCH (21:15)
[2019-11-05] MEDS ORDERED: ALBUTEROL/IPRATROPIUM 2.5MG/0.5MG, 3 ML NPPB PRN (21:30)
[2019-11-05] MEDS ORDERED: MULT-717 PO (21:46)
[2019-11-06 01:02] LABS: TROPONIN I < 0.015 ng/mL (0.000-0.045)
[2019-11-06 01:43] VITALS: BP 133/84
[2019-11-06] MEDS ORDERED: ALBUTEROL/IPRATROPIUM 2.5MG/0.5MG, 3 ML NPPB SCH (03:00)
[2019-11-06] MEDS ORDERED: AMIODARONE 200 MG TABLET PO ONE (06:00)
[2019-11-06] MEDS ORDERED: METOPROLOL SUCCINATE 100 MG TAB.ER.24H PO SCH (06:00)
[2019-11-06 06:38] LABS: ANION GAP 2 mmol/L (5-15); CALCIUM 8.3 mg/dL (8.5-10.1); CHLORIDE 98 mmol/L (98-107)
[2019-11-06 06:39] LABS: BASOPHILS # (AUTO) 0.04 x10^3/uL (0-0.1); BASOPHILS % (AUTO) 0 % (0-1); EOSINOPHILS % (AUTO) 2 % (1-7); LYMPHOCYTES # (AUTO) 1.83 x10^3/uL (1-3.4); LYMPHOCYTES % (AUTO) 17 % (22-44); MD NO; MEAN CORPUSCULAR HEMOGLOBIN 32.2 pg (27.5-34.5); MEAN CORPUSCULAR HGB CONC 33.8 g/dL (33.2-36.2); MEAN CORPUSCULAR VOLUME 95.4 fL (81-97); MEAN PLATELET VOLUME 6.7 fL (7.4-10.4); MONOCYTES # (AUTO) 1.02 x10^3/uL (0.2-0.8); MONOCYTES % (AUTO) 9 % (2-9); NEUTROPHILS # (AUTO) 7.87 x10^3/uL (1.8-6.8); NEUTROPHILS % (AUTO) 72 % (42-75); PLATELET COUNT 130 x10^3/uL (130-400); RED BLOOD COUNT 4.91 x10^6/uL (4.38-5.82); RED CELL DISTRIBUTION WIDTH 13.6 % (9.4-14.8)
[2019-11-06 06:42] LABS: TROPONIN I < 0.015 ng/mL (0.000-0.045)
[2019-11-06 07:52] VITALS: BP 130/77
[2019-11-06] MEDS ORDERED: AMIODARONE 200 MG TABLET PO SCH (09:00)
[2019-11-06] MEDS ORDERED: HYDROCHLOROTHIAZIDE 25 MG TABLET PO SCH (09:00)
[2019-11-06] MEDS ORDERED: BUDESONIDE 0.5 MG/2 ML INHA NPPB SCH (09:00)
[2019-11-06] MEDS ORDERED: LOSARTAN 100 MG TAB PO SCH (09:00)
[2019-11-06] MEDS: APIXABAN 5 MG TABLET PO SCH (09:06)
[2019-11-06] MEDS: SODIUM CHLORIDE 0.9% 1,000 ML IV SCH (09:06)
[2019-11-06] MEDS ORDERED: HYDROcodone/APAP 10/325 MG TABLET PO PRN (10:30)
[2019-11-06 13:50] VITALS: BP 129/79
== END 2019-11-06 14:06 | disposition home or self-care (01) | DRG 133 ==
LOC: ED 17:45 → EDIP 18:43 → 5SO 20:24
PROVIDERS: ADMIT Family Medicine; ATTEND Family Medicine
DX: J96.01 Acute respiratory failure with hypoxia (principal); E87.3 Alkalosis; I24.9 Acute ischemic heart disease, unspecified; E83.42 Hypomagnesemia; I48.20 Chronic atrial fibrillation, unspecified; Z99.81 Dependence on supplemental oxygen; F17.210 Nicotine dependence, cigarettes, uncomplicated; G89.29 Other chronic pain; I10 Essential (primary) hypertension; J44.9 Chronic obstructive pulmonary disease, unspecified; M54.9 Dorsalgia, unspecified; M54.2 Cervicalgia; D72.829 Elevated white blood cell count, unspecified; I48.92 Unspecified atrial flutter; Z79.01 Long term (current) use of anticoagulants; Z82.49 Family history of ischemic heart disease and other diseases of the circulatory system; Z86.14 Personal history of Methicillin resistant Staphylococcus aureus infection
CPT/HCPCS: 36415; 71045; 80048; 80053; 83735; 83880; 84443; 84484; 85025; 85610; 93005; 93306; 94640; 96374; 96375; 99291; G0378; J7626; J2060; J3475; J7030; J7040

== ENCOUNTER 2019-11-14 07:53 | Emergency (ER) | payer MEDICAID ==
[~2019-11-14] VITALS: Ht 177.8 cm; Wt 126.2 kg
[~2019-11-14 07:53] MED LIST changes: +MULT-717 PO
--- NOTE | 2019-11-14 08:10 | NUR ---
pt ambulated back to room with a steady gait. Changed into hospital gown and connected to monitor. pt in with C/O shortness of breath and sharp CP. pt reports that he wears home O2 at 3LPM/NC. pt states that he was in the ER last week for similar compants.
--- NOTE | 2019-11-14 08:19 | NUR ---
Provider at bedside.
[2019-11-14] MEDS ORDERED: SODIUM CHLORIDE FLUSH 10ML SYR IVF ONE (08:30)
[2019-11-14 08:41] LABS: BASOPHILS # (AUTO) 0.05 x10^3/uL (0-0.1); BASOPHILS % (AUTO) 0 % (0-1); EOSINOPHILS # (AUTO) 0.26 x10^3/uL (0-0.4); EOSINOPHILS % (AUTO) 2 % (1-7); LYMPHOCYTES % (AUTO) 14 % (22-44); MD NO; MEAN CORPUSCULAR HEMOGLOBIN 32.2 pg (27.5-34.5); MEAN CORPUSCULAR HGB CONC 33.6 g/dL (33.2-36.2); MEAN CORPUSCULAR VOLUME 95.8 fL (81-97); MEAN PLATELET VOLUME 6.9 fL (7.4-10.4); MONOCYTES # (AUTO) 0.84 x10^3/uL (0.2-0.8); MONOCYTES % (AUTO) 7 % (2-9); NEUTROPHILS # (AUTO) 9.11 x10^3/uL (1.8-6.8); NEUTROPHILS % (AUTO) 76 % (42-75); PLATELET COUNT 143 x10^3/uL (130-400); RED BLOOD COUNT 5.22 x10^6/uL (4.38-5.82); RED CELL DISTRIBUTION WIDTH 13.4 % (9.4-14.8)
[2019-11-14 08:52] LABS: ALANINE AMINOTRANSFERASE 20 U/L (12-78); ALBUMIN 3.8 g/dL (3.4-5.0); CALCIUM 9.3 mg/dL (8.5-10.1); CHLORIDE 97 mmol/L (98-107); CREATININE 1.08 mg/dL (0.7-1.3)
[2019-11-14 08:56] LABS: ALKALINE PHOSPHATASE 84 U/L (45-117); BILIRUBIN,TOTAL 0.7 mg/dL (0.2-1.0); TOTAL PROTEIN 7.3 g/dL (6.4-8.2); TROPONIN I < 0.015 ng/mL (0.000-0.045)
[2019-11-14 09:00] LABS: ANION GAP 5 mmol/L (5-15)
--- NOTE | 2019-11-14 09:29 | NUR ---
pt going in and out of afib up to the HR 140's and back to 60's. pt stated he took 100mg Metropolol Tartate this morning, prior to arrival to ER. Discussed with provider, Will place additional medication orders.
[2019-11-14 10:13] VITALS: BP 150/79
--- NOTE | 2019-11-14 10:15 | NUR ---
Patientgiven discharge instructions and they have confirmed that they understand the instructions. Patient ambulatory with steady gait. Left ER in no distress
== END 2019-11-14 10:16 | disposition home or self-care (01) ==
LOC: ED 08:24
DX: R07.89 Other chest pain (principal); F41.9 Anxiety disorder, unspecified; F17.210 Nicotine dependence, cigarettes, uncomplicated; I48.92 Unspecified atrial flutter; I48.91 Unspecified atrial fibrillation; J44.9 Chronic obstructive pulmonary disease, unspecified; I10 Essential (primary) hypertension
CPT/HCPCS: 36415; 71045; 80053; 83880; 84484; 85025; 93005; 99285

== ENCOUNTER → 2020-02-24 | Outpatient (CLI) | payer MEDICAID | END | disposition home or self-care (01) | LOC: RAD 09:43 | PROVIDERS: ATTEND Internal Medicine Cardiovascular Disease | DX: I48.91 Unspecified atrial fibrillation (principal) | CPT/HCPCS: 71046 ==